=== PATIENT | male | born 1965 | race Caucasian/White ===

== ENCOUNTER 2025-02-18 19:27 | Inpatient (IN) | payer OTHER ==
--- NOTE | 2025-02-18 20:23 | ED ---
General Adult HPI - General Source: patient, RN notes reviewed Mode of arrival: ambulatory Limitations: no limitations <Lewis Slade - Last Filed: 02/18/25 20:21> - General Source: patient, RN notes reviewed, old records reviewed <Wilfrido Leal - Last Filed: 02/19/25 06:31> - General Stated complaint: SOB Time Seen by Provider: 02/18/25 19:44 - History of Present Illness Initial comments: Quick note: This is a 59-year-old male with history including COPD and EtOH abuse coming from [place] for chest congestion and shortness of breath x 3 days. Patient states he has had similar symptoms intermittently for the past 5 years. States he was intubated last year due to influenza exacerbation. Patient also endorses some dyspnea with exertion. Endorses use of Symbicort and Atrovent, stating albuterol given at [facility] provided minimal relief. Denies use of home O2, stating his pulse ox today was 83% RA. Denies fever, chills, hemoptysis, chest pain, abdominal pain, N/V/D, urinary symptoms. (Lewis Slade) Patient is a 59-year-old male with past medical history remarkable for alcohol abuse. Last drink alcohol 1 week ago. Presents from [place] over concern for shortness of breath. Does have a history of tobacco use and COPD. Rarely smokes now. Denies any chest pain. Denies any abdominal pain with nausea, vo miting. Initially seen in triage as a quick note and I evaluated the patient when he was placed in a room. Endorses shortness of breath with exertion. Symptoms have been ongoing for a few days. Presents for further evaluation at this time. Typically not on oxygen. (Wilfrido Leal) - Related Data Allergies Allergy/AdvReac Type Severity Reaction Status Date / Time No Known Allergies Allergy Verified 02/18/25 20:30 Review of Systems ROS Other: All systems not noted in ROS Statement are negative. <Lewis Slade - Last Filed: 02/18/25 20:21> ROS Other: All systems not noted in ROS Statement are negative. <Wilfrido Leal - Last Filed: 02/19/25 06:31> ROS Statement: Those systems with pertinent positive or pertinent negative responses have been documented in the HPI. Review of Systems: CONST: Denies fever EYES: Denies blurry vision ENT: Denies nasal congestion C/V: Denies Chest pain RESP: Endorses dyspnea GI: Denies abdominal pain : Denies dysuria SKIN: Denies rash. MSK: Denies joint pain. NEURO: Denies headache (Wilfrido Leal) General Exam <Lewis Slade - Last Filed: 02/18/25 20:21> <Wilfrido Leal - Last Filed: 02/19/25 06:31> - General Exam Comments Initial Comments: Visual Physical Exam Vital signs reviewed General: Well-appearing, nontoxic, no acute distress. Head: Normocephalic, atraumatic Eyes: PERRLA, EOMI ENT: Airway patent Chest: Nonlabored breathing Skin: No visual rash, normal skin tone Neuro: Alert and oriented 3 Musculoskeletal: No gross abnormalities (Lewis Slade) General: Febrile. Increased work of breathing. HEAD: Normal with no signs of head trauma. EYES: PERRLA, EOMI, conjunctiva normal, no discharge. Pupils are 3 mm and equal bilaterally. ENT: Hearing grossly intact, normal oropharynx. RESPIRATORY: Coarse breath sounds bilaterally with wheezing. Hypoxic on room air. Normoxic on 4 to 5 L nasal cannula. C/V: Tachycardic with regular rhythm. S1 and S2 auscultated, no edema, peripheral pulses 2+ and intact throughout ABD: Abd is soft, nontender, nondistended EXT: Normal range of motion, no obvious deformity SKIN: No rashes or lesions observed on exposed skin. NEURO: Alert and oriented x 4. (Wilfrido Leal) Course Vital Signs 02/18/25 02/18/25 02/18/25 20:26 23:29 23:32 Temperature 100.3 F H 99.8 F H Pulse Rate 114 H 104 H Pulse Rate [ Pulse Oximetery ] Respiratory 22 26 H 26 H Rate Blood Pressure 173/94 156/88 Blood Pressure [Left Arm] O2 Sat by Pulse 94 L 92 L Oximetry 02/19/25 02/19/25 02/19/25 02:10 02:22 02:34 Temperature 99.5 F Pulse Rate 108 H 110 H 89 Pulse Rate [ Pulse Oximetery ] Respiratory 22 Rate Blood Pressure 140/79 Blood Pressure [Left Arm] O2 Sat by Pulse 93 L Oximetry 02/19/25 02/19/25 02/19/25 04:38 06:14 06:17 Temperature 99.2 F 97.6 F Pulse Rate 88 Pulse Rate [ 93 Pulse Oximetery ] Respiratory 18 18 22 Rate Blood Pressure 139/84 Blood Pressure 125/78 [Left Arm] O2 Sat by Pulse 94 L 92 L Oximetry Medical Decision Making <Lewis Slade - Last Filed: 02/18/25 20:21> - Lab Data Result diagrams: 02/19/25 01:00 02/19/25 01:00 - EKG Data -: EKG Interpreted by Me <Wilfrido Leal - Last Filed: 02/19/25 06:31> - Medical Decision Making I completed the quick note portion of this chart signed JA Oneal (Lewis Slade) Was pt. sent in by a medical professional or institution ([facility], FLOOR FINISHER, urgent care, hospital, or assisted...) When possible be specific @ -No Did you speak to anyone other than the patient for history (EMS, parent, family, police, friend...)? What history was obtained from this source @ -No Did you review nursing and triage notes (agree or disagree)? Why? @ -I reviewed and agree with nursing and triage notes Were old charts reviewed (outside hosp., previous admission, EMS record, old EKG, old radiological studies, urgent care reports/EKG's, assisted records)? Report findings @ -No old charts were reviewed Differential Diagnosis (chest pain, altered mental status, abdominal pain women, abdominal pain men, vaginal bleeding, weakness, fever, dyspnea, syncope, headache, dizziness, GI bleed, back pain, seizure, CVA, palpatations, mental health, musculoskeletal)? @ -Differential Dyspnea: Coronary syndrome, arrhythmia, tamponade, asthma, COPD, pulmonary embolism, pneumonia, pneumothorax, pulmonary effusion, anaphylaxis, diabetic ketoacidosis, flailed chest, pulmonary contusion, diaphragmatic rupture, anemia, neuromuscular, this is not meant to be an all-inclusive list. EKG interpreted by me (3pts min.). @ -As above X-rays interpreted by me (1pt min.). @ -Chest x-ray shows bilateral pneumonia CT interpreted by me (1pt min.). @ -None done U/S interpreted by me (1pt. min.). @ -None done What testing was considered but not performed or refused? (CT, X-rays, U/S, labs)? Why? @ -None What meds were considered but not given or refused? Why? @ -None Did you discuss the management of the patient with other professionals (professionals i.e. , PA, FLOOR FINISHER, lab, RT, psych nurse, social insurance specialist, diabetes clinical manager, teacher, duty officer, family caseworker)? Give summary @ -Discussed with admitting provider, ANDREE Olimpia SULLIVAN accepted the admission. Was smoking cessation discussed for >3mins.? @ -No Was critical care preformed (if so, how long)? @ -Yes, 35 minutes Were there social determinants of health that impacted care today? How? (Homelessness, low income, unemployed, alcoholism, drug addiction, transportation, low edu. Level, literacy, decrease access to med. care, snf, rehab)? @ -No Was there de-escalation of care discussed even if they declined (Discuss DNR or withdrawal of care, Hospice)? DNR status @ -No What co-morbidities impacted this encounter? (DM, HTN, Smoking, COPD, CAD, Cancer, CVA, ARF, Chemo, Hep., AIDS, mental health diagnosis, sleep apnea, morbid obesity)? @ -COPD Was patient admitted / discharged? Hospital course, mention meds given and route, prescriptions, significant lab abnormalities, going to OR and other pert inent info. @ -Patient presents emergency department with hypoxic respiratory failure, increased shortness of breath with productive cough. Seems to be infectious with COPD exacerbation. Originally seen as a quick note and I evaluated the patient when he is placed in room. Patient did meet sepsis criteria at this time with multiple SIRS criteria. Patient met sepsis criteria at 0000. Culture ordered. Patient given 2 L fluid bolus of lactated Ringer's as well as IV steroids, breathing treatment, maintenance IV fluids. Patient will be admitted likely after workup. EKG shows no signs of acute ischemia. Labs remarkable for leukocytosis of 13. Lactic acid within acceptable limits. Viral swabs unremarkable. Patient's chest x-ray shows bilateral pneumonia. On reevaluation, patient is resting more comfortably at this time. Increased work of breathing is decreased. Fever is improved. He will be admitted at this time for hypoxic respiratory failure likely from septic pneumonia. Also COPD exacerbation. He was in agreement this plan. Pulmonology consulted. I spoke with the admitting provider, ANDREE SULLIVAN who accepted the admission. Undiagnosed new problem with uncertain prognosis? @ -No Drug Therapy requiring intensive monitoring for toxicity (Heparin, Nitro, Insulin, Cardizem)? @ -No Were any procedures done? @ -No Diagnosis/symptom? @ -Hypoxic respiratory failure secondary to COPD and septic pneumonia Acute, or Chronic, or Acute on Chronic? @ -Acute Uncomplicated (without systemic symptoms) or Complicated (systemic symptoms)? @ -Complicated Side effects of treatment? @ -No Exacerbation, Progression, or Severe Exacerbation? @ -No Poses a threat to life or bodily function? How? (Chest pain, USA, MD, pneumonia, PE, COPD, DKA, ARF, appy, cholecystitis, CVA, Diverticulitis, Homicidal, Suicidal, threat to staff... and all critical care pts) @ -Yes (Wilfrido Leal) - Lab Data Lab Results 02/18/25 02/19/25 02/19/25 Range/Units 23:29 01:00 01:00 WBC 13.03 H (4.50-10.00) 10*3/uL RBC 3.96 L (4.40-5.60) 10*6/uL Hgb 12.0 L (13.0-17.0) g/dL Hct 36.4 L (39.6-50.0) % MCV 91.9 (80.0-97.0) fL MCH 30.3 (27.0-32.0) pg MCHC 33.0 (32.0-37.0) g/dL Plt Count 383 (140-440) 10*3/uL MPV 8.9 L (9.5-12.2) fL Immature Gran % (Auto) 0.6 % Neutrophils % 85.0 % Lymphocytes % 7.4 % Monocytes % 6.1 % Eosinophils % 0.4 % Basophils % 0.5 % Immature Gran # 0.08 H (0.00-0.04) 10*3/uL Neutrophils # 11.07 H (1.80-7.70) 10*3/uL Lymphocytes # 0.96 (0.90-5.00) 10*3/uL Monocytes # 0.80 (0.20-1.00) 10*3/uL Eosinophils # 0.05 (0.04-0.35) 10*3/uL Basophils # 0.07 (0.00-0.10) 10*3/uL Sodium 133 L (137-145) mmol/L Potassium 4.4 (3.5-5.1) mmol/L Chloride 99 (98-107) mmol/L Carbon Dioxide 23 (22-30) mmol/L Anion Gap 11 mmol/L BUN 24 H (9-20) mg/dL Creatinine 0.66 (0.66-1.25) mg/dL Est GFR (CKD-EPI)AfAm >90 (>60 ml/min/1.73 sqM) Est GFR (CKD-EPI)NonAf >90 (>60 ml/min/1.73 sqM) Glucose 116 H (74-99) mg/dL Plasma Lactic Acid Kye (0.7-2.0) mmol/L Calcium 8.7 (8.4-10.2) mg/dL Total Bilirubin 0.5 (0.2-1.3) mg/dL AST 24 (17-59) U/L ALT 35 (4-49) U/L Alkaline Phosphatase 76 (38-126) U/L Total Protein 6.6 (6.3-8.2) g/dL Albumin 3.9 (3.5-5.0) g/dL Influenza Type A (PCR) Not Detected (Not Detectd) Influenza Type B (PCR) Not Detected (Not Detectd) RSV (PCR) Not Detected (Not Detectd) SARS-CoV-2 (PCR) Not Detected (Not Detectd) 02/19/25 Range/Units 01:00 WBC (4.50-10.00) 10*3/uL RBC (4.40-5.60) 10*6/uL Hgb (13.0-17.0) g/dL Hct (39.6-50.0) % MCV (80.0-97.0) fL MCH (27.0-32.0) pg MCHC (32.0-37.0) g/dL Plt Count (140-440) 10*3/uL MPV (9.5-12.2) fL Immature Gran % (Auto) % Neutrophils % % Lymphocytes % % Monocytes % % Eosinophils % % Basophils % % Immature Gran # (0.00-0.04) 10*3/uL Neutrophils # (1.80-7.70) 10*3/uL Lymphocytes # (0.90-5.00) 10*3/uL Monocytes # (0.20-1.00) 10*3/uL Eosinophils # (0.04-0.35) 10*3/uL Basophils # (0.00-0.10) 10*3/uL Sodium (137-145) mmol/L Potassium (3.5-5.1) mmol/L Chloride (98-107) mmol/L Carbon Dioxide (22-30) mmol/L Anion Gap mmol/L BUN (9-20) mg/dL Creatinine (0.66-1.25) mg/dL Est GFR (CKD-EPI)AfAm (>60 ml/min/1.73 sqM) Est GFR (CKD-EPI)NonAf (>60 ml/min/1.73 sqM) Glucose (74-99) mg/dL Plasma Lactic Acid Kye 0.9 (0.7-2.0) mmol/L Calcium (8.4-10.2) mg/dL Total Bilirubin (0.2-1.3) mg/dL AST (17-59) U/L ALT (4-49) U/L Alkaline Phosphatase (38-126) U/L Total Protein (6.3-8.2) g/dL Albumin (3.5-5.0) g/dL Influenza Type A (PCR) (Not Detectd) Influenza Type B (PCR) (Not Detectd) RSV (PCR) (Not Detectd) SARS-CoV-2 (PCR) (Not Detectd) - EKG Data EKG Comments: 12-lead Electrocardiogram Interpretation Note EKG was reviewed and interpreted by myself. 12-lead ECG performed at 0201 is interpreted by me as revealing sinus tachycardia at a rate of 110 beats per minute. [place] is normal. MN interval is 164 ms, QRS duration is 91 ms, QTc is 395 ms.. There were no ST or T wave abnormalities to suggest myocardial ischemia or injury. R wave progression across the precordium was satisfactory. By my interpretation this EKG is non-diagnostic for acute ischemia. (Wilfrido Leal) Critical Care Time Critical Care Time: Yes Total Critical Care Time: 35 <Wilfrido Leal - Last Filed: 02/19/25 06:31> Disposition <Lewis Slade - Last Filed: 02/18/25 20:21> Time of Disposition: 02:16 <Wilfrido Leal - Last Filed: 02/19/25 06:31> Clinical Impression: Acute hypoxic respiratory failure, COPD (chronic obstructive pulmonary disease), Sepsis, Pneumonia Disposition: ADMITTED IP TO THIS HOSP Condition: Serious
--- NOTE | 2025-02-18 23:06 | XR ---
EXAMINATION TYPE: XR chest 2V DATE OF EXAM: 02/18/2025 9:48 PM CLINICAL INDICATION:Male, 59 years old with history of Cough, dyspnea; [facility] COMPARISON: None TECHNIQUE: XR chest 2V Frontal view of the chest. FINDINGS: Bilateral hazy interstitial and patchy airspace opacities are noted. The lungs are slightly hyperinfl ated. The cardiac silhouette is unremarkable. No pneumothorax. There is a round density seen in the a nterior lower hemithorax best seen on sagittal views. No acute osseous abnormality. IMPRESSION: Bilateral hazy interstitial and patchy airspace disease is concerning for acute infectious/inflammato ry process. Rounded density in the lower anterior hemithorax may relate to a hiatal hernia. Correlate with any known history otherwise CT chest is recommended to delineate this finding. [facility], , 02/18/2025 11:03 PM
[2025-02-19] MEDS ORDERED: VANCOMYCIN IV PER PHARMACY 1 EACH MISC MISCELLANE PRN (00:03)
[2025-02-19 00:18] LABS: RSV Not Detected (Not Detectd)
[2025-02-19] MEDS: methylPREDNISolone SOD SUCCI 125 MG/2 ML VIAL IV STA (00:38)
[2025-02-19] MEDS: CEFEPIME 2 GM in SODIUM CHLORIDE 0.9% 100 ML IVPB STA (00:40)
[2025-02-19] MEDS: LACTATED RINGERS 1,000 ML IV SCH ×2 (00:44→01:45)
[2025-02-19 01:17] LABS: Basophils # (A) 0.07 10*3/uL (0.00-0.10); Basophils % (A) 0.5 %; Eosinophils # (A) 0.05 10*3/uL (0.04-0.35); Eosinophils % (A) 0.4 %; HCT 36.4 % (39.6-50.0); HGB 12.0 g/dL (13.0-17.0); Lymphocytes # (A) 0.96 10*3/uL (0.90-5.00); Lymphocytes % (A) 7.4 %; MCH 30.3 pg (27.0-32.0); MCHC 33.0 g/dL (32.0-37.0); MCV 91.9 fL (80.0-97.0); Monocytes # (A) 0.80 10*3/uL (0.20-1.00); Monocytes % (A) 6.1 %; Neutrophils # (A) 11.07 10*3/uL (1.80-7.70); Neutrophils % (A) 85.0 %; Platelet Count 383 10*3/uL (140-440); RBC 3.96 10*6/uL (4.40-5.60); RDW 13.5 % (11.5-14.5); WBC 13.03 10*3/uL (4.50-10.00)
[2025-02-19] MEDS: VANCOMYCIN 1,750 MG in SODIUM CHLORIDE 0.9% 500 ML 500 ML IVPB ONE (01:40)
[2025-02-19] MEDS: ACETAMINOPHEN TAB 500 MG TAB PO STA (01:51)
[2025-02-19 02:03] LABS: ALT 35 U/L (4-49); AST 24 U/L (17-59); African American GFR (CKD) >90 (>60 ml/min/1.73 sqM); Albumin 3.9 g/dL (3.5-5.0); Alkaline Phosphatase 76 U/L (38-126); Anion Gap 11 mmol/L; Blood Urea Nitrogen 24 mg/dL (9-20); Calcium 8.7 mg/dL (8.4-10.2); Carbon Dioxide 23 mmol/L (22-30); Chloride 99 mmol/L (98-107); Glucose 116 mg/dL (74-99); Non-African American GFR(CKD) >90 (>60 ml/min/1.73 sqM); Potassium 4.4 mmol/L (3.5-5.1); Sodium 133 mmol/L (137-145); Total Protein 6.6 g/dL (6.3-8.2)
[2025-02-19] MEDS: IPRATROPIUM-ALBUTEROL 3 ML NEB INHALATION STA (02:07)
[2025-02-19] MEDS ORDERED: ONDANSETRON 4 MG/2 ML VIAL IVP PRN (02:15)
[2025-02-19] MEDS ORDERED: ACETAMINOPHEN TAB 325 MG TAB PO PRN (02:15)
[2025-02-19] MEDS ORDERED: NALOXONE 0.4 MG/ML 1 ML VIAL IV PRN (02:15)
[2025-02-19] MEDS ORDERED: IPRATROPIUM-ALBUTEROL 3 ML NEB INHALATION PRN (02:17)
--- NOTE | 2025-02-19 07:35 | P.CNPUL ---
History of Present Illness Consult date: 02/19/25 Requesting physician: Wilfrido Leal Reason for consult: COPD, pneumonia Chief complaint: Sent in from [place], shortness of breath and fevers History of present illness: Patient is a 59-year-old male with past medical history significant for alcohol abuse sent in from [place] with increased work of breathing x 3 days and congested cough along with fevers. He is from the [facility]. He does have history of COPD and previously previous intubation due to influenza infection. He was hypoxic on arrival and placed on supplemental oxygen. He was tachycardic and febrile and met sepsis criteria. He was bolused with 2 L of lactated Ringer's. Chest x-ray showing bilateral hazy interstitial and patchy airspace disease concerning for pneumonia. Rounded density in the lower anterior hemithorax may be related to hiatal hernia. CBC remarkable for leukocytosis with a white count of 13, hemoglobin 12, platelets 383. Electrolytes WDL, creatinine 0.66, glucose 116. Lactic 0.9. Viral 4 Plex negative for influenza A/B, RSV, COVID. Patient previously started on antibiotics in the form of cefepime and vancomycin. Also, started on DuoNebs and loaded with IV Solu- Medrol. Patient currently being evaluated on the general medical floor. He is resting comfortably on 5 L/min nasal cannula. Does not appear to be distressed. Patient states he was clean from alcohol for proximately 9 months and then approximately 2 weeks ago started binge drinking 1/5/day. Was at [place] to detox. His last drink was on of last week. Denies any current drug abuse, previously cocaine userr but quit 1 year ago. Denies any chest pain, heart palpitations, lightheadedness or syncopal events, or lower extremity edema. While at the rehab facility he developed increased work of breathing, congested cough, and chills. He was febrile on arrival at our facility. He does have COPD. Smokes approximately 1/2 pack/day. He is on a combination of inhalers including Symbicort, Atrovent, and as needed albuterol. Normal saline infusing at 130 mL/h. Vital signs are stable. Review of Systems Constitutional: Reports fatigue, Reports fever, Denies chills, Denies poor appetite, Denies weakness, Denies weight gain, Denies weight loss Ears, nose, mouth and throat: Denies dysphagia, Denies headache, Denies nasal congestion, Denies nasal discharge, Denies post-nasal drip, Denies sinus pain, Denies sinus pressure, Denies sore throat Cardiovascular: Denies chest pain, Denies leg edema, Denies lightheadedness, Denies orthopnea, Denies palpitations, Denies paroxysmal nocturnal dyspnea, Denies syncope Gastrointestinal: Denies abdominal pain, Denies constipation, Denies diarrhea, Denies loss of appetite, Denies nausea, Denies vomiting Genitourinary: Denies dysuria Musculoskeletal: Denies limitation of motion Integumentary: Denies rash Neurological: Reports seizures (Admits to previous seizures during alcohol withdrawal), Denies head injury, Denies headaches, Denies syncope Psychiatric: Denies anxiety, Denies depression Past Medical History Past Medical History: COPD History of Any Multi-Drug Resistant Organisms: None Reported Past Surgical History: No Surgical Hx Reported Past Anesthesia/Blood Transfusion Reactions: No Reported Reaction Past Psychological History: No Psychological Hx Reported Smoking Status: Current some day smoker Past Alcohol Use History: Abuse Additional Past Alcohol Use History / Comment(s): Hx Alcohol abuse. Last drink 02/11/25. Patient was at [place] prior to admission Past Drug Use History: None Reported Medications and Allergies Allergies Allergy/AdvReac Type Severity Reaction Status Date / Time No Known Allergies Allergy Verified 02/19/25 11:04 Physical Exam Vitals: Vital Signs Temp Pulse Pulse Resp BP BP Pulse Ox 02/19/25 06:17 22 02/19/25 06:14 97.6 F 93 18 125/78 92 L 02/19/25 04:38 99.2 F 88 18 139/84 94 L 02/19/25 02:34 99.5 F 89 22 140/79 93 L 02/19/25 02:22 110 H 02/19/25 02:10 108 H 02/18/25 23:32 26 H 02/18/25 23:29 99.8 F H 104 H 26 H 156/88 92 L 02/18/25 20:26 100.3 F H 114 H 22 173/94 94 L Intake and Output 02/18/25 02/19/25 02/19/25 22:59 06:59 14:59 Other: Weight 118.614 kg 118.614 kg GENERAL EXAM: Alert, 59-year-old male, morbidly obese, on 5 L/min nasal cannula, comfortable in no apparent distress. HEAD: Normocephalic and atraumatic EYES: Normal reaction of pupils, equal size. NOSE: Clear with pink turbinates. THROAT: No erythema or exudates. Crowded oropharyngeal airway, Mallampati score 4 NECK: No masses, no JVD. CHEST: No chest wall deformity. LUNGS: Equal air entry with minimal bibasilar crackles. On 5 L/min nasal cannula. No conversational dyspnea or accessory muscle use.. CVS: S1 and S2 normal with no audible murmur, regular rhythm. No extra heart sounds ABDOMEN: No hepatosplenomegaly, active bowel sounds, no guarding or rigidity. SPINE: No scoliosis or deformity SKIN: No rashes CENTRAL NERVOUS SYSTEM: No focal deficits, tone is normal in all 4 extremities. EXTREMITIES: There is no peripheral edema, clubbing, or cyanosis. Peripheral pulses are intact. Results - Laboratory Findings CBC and BMP: 02/19/25 01:00 02/19/25 01:00 Abnormal lab findings: Abnormal Labs 02/19/25 02/19/25 01:00 01:00 WBC 13.03 H RBC 3.96 L Hgb 12.0 L Hct 36.4 L MPV 8.9 L Immature Gran # 0.08 H Neutrophils # 11.07 H Sodium 133 L BUN 24 H Glucose 116 H - Diagnostic Findings Chest x-ray: image reviewed Assessment and Plan Assessment: Bilateral community-acquired pneumonia Acute COPD exacerbation, secondary to above Acute hypoxemic respiratory failure, currently on 5 L/min nasal cannula, chest x-ray remarkable for bilateral hazy interstitial and patchy airspace disease concerning for pneumonia. Rounded density in the lower anterior hemithorax may be related to hiatal hernia. Alcohol abuse, last drink approximately 1 week ago, potential referral 1/5/day History of alcohol withdrawal seizures History of cocaine use Current ongoing tobacco dependence, 1/2 pack/day smoker History of previous mechanical ventilator dependent respiratory failure secondary to influenza infection, hospitalized at [facility] Morbid obesity, with a BMI of 41 kg/m Plan: Continue supplemental oxygen, currently on 5 L/min nasal cannula, wean as tolerated Patient's medications, labs, chest x-ray reviewed Hazy bilateral infiltrates, alcoholic with recent binge drinking. Continue antibiotic coverage in the form of cefepime Obtain sputum sample if possible Blood cultures were sent Viral 4 Plex negative for influenza A/B RSV, COVID. Monitor for alcohol withdrawal, however, patient's last drink was over 1 week ago We will continue to follow, additional recommendations forthcoming. I have personally seen and examined the patient, performed the documentation and the assessment and plan as written. Number of minutes spent on the visit:20 This is a joint evaluation that was done along with the nurse practitioner. This evaluation was done and 35 minutes. The patient is morbidly obese alcoholic male patient with previous history of polysubstance abuse. He was undergoing alcohol rehabilitation at [place] with the patient developed progressive increased dyspnea cough chest tightness wheezing and shortness of breath. He is currently hospitalized for bilateral pneumonia. The viral screen is negative. The chest x-ray revealed hazy bilateral pulmonary infiltrates in the lung base bilaterally and the patient also has a rounded density in the lower anterior hemithorax could be related to underlying hiatal hernia. The patient is currently on 4 L of oxygen by nasal cannula with pulse ox of 94%. The patient is currently on IV cefepime and vancomycin. No signs of any delirium tremens. He does have obvious features of obstructive sleep apnea that can be worked up at a later stage. He smokes half pack of cigarettes a day. He also has COPD. He is currently on Symbicort and DuoNeb the regiment [id number]. IV fluids lactated Ringer at rate of 130 cc an hour. He is also on IV Solu-Medrol. Will continue to follow. Time with Patient: Greater than 30
[2025-02-19] MEDS: IPRATROPIUM-ALBUTEROL 3 ML NEB INHALATION SCH (08:57)
[2025-02-19] MEDS: SYMBICORT 160-4.5 MCG INHALER INHALATION SCH (08:59)
[2025-02-19] MEDS: methylPREDNISolone SOD SUCCI 40 MG/ML 1 ML VIAL IV SCH (10:01)
[2025-02-19] MEDS: ENOXAPARIN 40 MG/0.4 ML SYRINGE SQ SCH (10:01)
[2025-02-19] MEDS: CEFEPIME 2 GM in SODIUM CHLORIDE 0.9% 100 ML IVPB SCH (10:01)
[2025-02-19] MEDS: VANCOMYCIN 1,750 MG in SODIUM CHLORIDE 0.9% 500 ML 500 ML IVPB SCH (14:58)
[2025-02-19 20:31] LABS: Glucose,Whole Blood 157 mg/dL (70-110)
[2025-02-19] MEDS: ATORVASTATIN 20 MG TAB PO SCH (20:59)
[2025-02-19] MEDS: LABETALOL 100 MG TAB PO SCH (20:59)
[2025-02-19] MEDS: INSULIN LISPRO (HumaLOG) 100 UNIT/ML 10 mL VL SQ SCH (21:00)
[2025-02-19] MEDS: NICOTINE 14MG/24HR PATCH TRANSDERM SCH (22:43)
--- NOTE | 2025-02-20 00:42 | P.HPIM ---
History of Present Illness This is a pleasant 59 years old male with past medical history with chronic obstructive pulmonary disease. Presents because of worsening dyspnea over 2 days associated with cough and yellow phlegm with no chest pain No specific GI/ symptoms has little headache but no weakness numbness or dizziness Also was complaining from exertional dyspnea. He says he quit smoking but relapsed few months ago and he started smoking again about less than 10 cigarettes/day, he was counseled to quit he agrees but he does not want nicotine patch Patient was at [facility] because he drinks 2/5 day, he has the pression but no suicidal or homicidal ideation. He denies hallucination or delusions. He looks calm and relaxed in bed He had low-grade temperature 100.3, heart rate 114 respiratory 22 blood pressure 173/91 Chest x-ray showing bilateral interstitial and patchy airspace disease EKG showing sinus tachycardia [address]-T changes Review of Systems Review of systems CONSTITUTIONAL: No fever, no malaise, no fatigue. HEENT: No recent visual problems or hearing problems. Denied any sore throat. CARDIOVASCULAR: No orthopnea, PND, no palpitations, no syncope. PULMONARY: No chest wall tenderness, no hemoptysis. GASTROINTESTINAL: No diarrhea, no nausea, no vomiting, no abdominal pain. Normoactive bowel sounds. NEUROLOGICAL: No headaches, no weakness, no numbness. HEMATOLOGICAL: Denies any bleeding or petechiae. GENITOURINARY: Denies any burning micturition, frequency, or urgency. MUSCULOSKELETAL/RHEUMATOLOGICAL: Denies any joint pain, swelling, or any muscle pain. ENDOCRINE: Denies any polyuria or polydipsia. Past Medical History Past Medical History: COPD History of Any Multi-Drug Resistant Organisms: None Reported Past Surgical History: No Surgical Hx Reported Past Anesthesia/Blood Transfusion Reactions: No Reported Reaction Past Psychological History: No Psychological Hx Reported Smoking Status: Current some day smoker Past Alcohol Use History: Abuse Additional Past Alcohol Use History / Comment(s): Hx Alcohol abuse. Last drink 02/11/25. Patient was at [facility] prior to admission Past Drug Use History: None Reported Medications and Allergies Home Medications Medication Instructions Recorded Confirmed Type Albuterol Sulfate [Ventolin HFA] 1 puff INHALATION RT-Q4H PRN 02/19/25 02/19/25 History Atorvastatin [Lipitor] 20 mg PO HS 02/19/25 02/19/25 History Budesonide/Formoterol Fumarate 1 puff INHALATION RT-BID 02/19/25 02/19/25 History [Symbicort 160-4.5 Mcg Inhaler] Ibuprofen [Motrin Ib] 600 mg PO Q6H PRN 02/19/25 02/19/25 History Ipratropium [place] [Atrovent Hfa] 2 puff INHALATION RT-Q6H PRN 02/19/25 02/19/25 History Labetalol HCl 300 mg PO Q12H 02/19/25 02/19/25 History PARoxetine HCL 40 mg PO DAILY 02/19/25 02/19/25 History Semaglutide [Ozempic] 0.25 mg SQ TH 02/19/25 02/19/25 History amLODIPine [Norvasc] 5 mg PO DAILY 02/19/25 02/19/25 History guaiFENesin SYRUP 100MG/5ML 200 mg PO Q4H PRN 02/19/25 02/19/25 History [Robitussin] metFORMIN HCL [Glucophage] 500 mg PO BID-W/MEALS 02/19/25 02/19/25 History traZODone HCL [Desyrel] 100 mg PO HS PRN 02/19/25 02/19/25 History Allergies Allergy/AdvReac Type Severity Reaction Status Date / Time No Known Allergies Allergy Verified 02/19/25 11:04 Physical Exam Vitals: Vital Signs Temp Pulse Pulse Resp BP BP Pulse Ox 02/19/25 13:32 98.2 F 108 H 17 143/87 94 L 02/19/25 12:07 96 02/19/25 11:56 96 02/19/25 10:00 22 02/19/25 09:14 100 02/19/25 09:00 96 95 02/19/25 07:16 97.5 F L 85 16 127/79 92 L 02/19/25 06:17 22 02/19/25 06:14 97.6 F 93 18 125/78 92 L 02/19/25 04:38 99.2 F 88 18 139/84 94 L 02/19/25 02:34 99.5 F 89 22 140/79 93 L 02/19/25 02:22 110 H 02/19/25 02:10 108 H 02/18/25 23:32 26 H 02/18/25 23:29 99.8 F H 104 H 26 H 156/88 92 L 02/18/25 20:26 100.3 F H 114 H 22 173/94 94 L Intake and Output 02/19/25 02/19/25 02/19/25 06:59 14:59 22:59 Output Total 300 Balance -300 Output: Urine 300 Other: Weight 118.614 kg -GENERAL: The patient is alert and oriented x3, not in any acute distress. Well developed, well nourished. Obese HEENT: Pupils are round and equally reacting to light. EOMI. No scleral icterus. No conjunctival pallor. Normocephalic, atraumatic. No pharyngeal erythema. No thyromegaly. CARDIOVASCULAR: S1 and S2 present. No murmurs, rubs, or gallops. -PULMONARY: Chest is clear to auscultation, bilateral expiratory wheezing , no crackles. ABDOMEN: Soft, nontender, nondistended, normoactive bowel sounds. No palpable organomegaly. MUSCULOSKELETAL: No joint swelling or deformity. EXTREMITIES: No cyanosis, clubbing, or pedal edema. NEUROLOGICAL: Gross neurological examination did not reveal any focal deficits. SKIN: No rashes. no petechiae. Results CBC & Chem 7: 02/19/25 01:00 02/19/25 01:00 Labs: Abnormal Lab Results - Last 24 Hours (Table) 02/19/25 02/19/25 Range/Units 01:00 01:00 WBC 13.03 H (4.50-10.00) 10*3/uL RBC 3.96 L (4.40-5.60) 10*6/uL Hgb 12.0 L (13.0-17.0) g/dL Hct 36.4 L (39.6-50.0) % MPV 8.9 L (9.5-12.2) fL Immature Gran # 0.08 H (0.00-0.04) 10*3/uL Neutrophils # 11.07 H (1.80-7.70) 10*3/uL Sodium 133 L (137-145) mmol/L BUN 24 H (9-20) mg/dL Glucose 116 H (74-99) mg/dL Thrombosis Risk Factor Assmnt - Choose All That Apply Any of the Below Risk Factors Present?: Yes Each Factor Represents 1 point: Abnormal pulmonary function (COPD), Age 41-60 years, Obesity (BMI >25) Other Risk Factors: No Other congenital or acquired thrombophilia - If yes, enter type in comment: No Thrombosis Risk Factor Assessment Total Risk Factor Score: 3 Thrombosis Risk Factor Assessment Level: Moderate Risk Assessment and Plan Assessment: Acute COPD exacerbation Acute bibasilar pneumonia right more than left Sepsis with fever and leukocytosis Acute hypoxic respiratory failure Nicotine dependence Alcohol use disorder at risk of alcohol withdrawal Depression without suicidal or homicidal ideation Obesity with BMI of 41 Plan: Continue with IV Solu-Medrol Continue cefepime and IV vancomycin Continue with IV fluid currently Ringer lactate at 130 Continue with Lovenox GI prophylaxis: Pepcid DVT prophylaxis: Pepcid Further recommendation based on the clinical course Patient was counseled to quit smoking drinking Prognosis is guarded
[2025-02-20 06:14] LABS: Glucose,Whole Blood 147 mg/dL (70-110)
[2025-02-20] MEDS: IPRATROPIUM-ALBUTEROL 3 ML NEB INHALATION SCH (07:48)
[2025-02-20] MEDS: PARoxetine 20 MG TAB PO SCH (08:09)
[2025-02-20] MEDS: amLODIPine 5 MG TAB PO SCH (08:10)
[2025-02-20 09:40] LABS: ALT 32 U/L (10-49); AST 17 U/L (14-35); Albumin 3.8 g/dL (3.8-4.9); Albumin/Globulin Ratio 1.52 Ratio (1.60-3.17); Alkaline Phosphatase 74 U/L (41-126); Anion Gap 10.80 mmol/L (4.00-12.00); BUN/Creat Ratio 25.00 Ratio (12.00-20.00); Blood Urea Nitrogen 17.5 mg/dL (9.0-27.0); Calcium 8.2 mg/dL (8.7-10.3); Carbon Dioxide 25.2 mmol/L (21.6-31.8); Chloride 106 mmol/L (96-109); Globulin 2.5 g/dL (1.6-3.3); Glucose 139 mg/dL (70-110); Potassium 4.1 mmol/L (3.5-5.5); Sodium 142 mmol/L (135-145); Total Protein 6.3 g/dL (6.2-8.2)
[2025-02-20 11:19] LABS: Glucose,Whole Blood 162 mg/dL (70-110)
[2025-02-20 13:16] LABS: Basophils # (A) 0.02 X 10*3/uL (0.00-0.10); Basophils % (A) 0.1 %; Eosinophils # (A) 0 X 10*3/uL (0.04-0.35); Eosinophils % (A) 0 %; HCT 37.0 % (39.6-50.0); HGB 11.6 g/dL (13.0-17.0); Immature Grans, Automated 1.10 %; Lymphocytes # (A) 0.78 X 10*3/uL (0.90-5.00); Lymphocytes % (A) 5.6 %; MCH 30.4 pg (27.0-32.0); MCHC 31.4 g/dL (32.0-37.0); MCV 97.1 FL (80.0-97.0); Monocytes # (A) 0.57 X 10*3/uL (0.20-1.00); Monocytes % (A) 4.1 %; NRBC Per 100 WBC 0 X 10*3/uL (0.00-0.01); Neutrophils # (A) 12.53 X 10*3/uL (1.80-7.70); Neutrophils % (A) 89.1 %; Platelet Count 408 X 10*3/uL (140-440); RBC 3.81 X 10*6/uL (4.40-5.60); RDW 13.8 % (11.5-14.5); WBC 14.05 X 10*3/uL (4.50-10.00)
[2025-02-20] MEDS: Acetaminophen-Codeine 300-30mg TAB PO PRN (16:13)
[2025-02-20 17:37] LABS: Glucose,Whole Blood 161 mg/dL (70-110)
[2025-02-20] MEDS: BENZONATATE 100 MG CAP PO SCH (21:27)
[2025-02-20 21:46] LABS: Glucose,Whole Blood 186 mg/dL (70-110)
--- NOTE | 2025-02-20 23:37 | P.PN ---
Subjective Progress Note Date: 02/20/25 Patient is a 59-year-old male with past medical history significant for alcohol abuse sent in from [facility] with increased work of breathing x 3 days and congested cough along with fevers. He is from the [facility]. He does have history of COPD and previously previous intubation due to influenza infection. He was hypoxic on arrival and placed on supplemental oxygen. He was tachycardic and febrile and met sepsis criteria. He was bolused with 2 L of lactated Ringer's. Chest x-ray showing bilateral hazy interstitial and patchy airspace disease concerning for pneumonia. Rounded density in the lower anterior hemithorax may be related to hiatal hernia. CBC remarkable for leukocytosis with a white count of 13, hemoglobin 12, platelets 383. Electrolytes WDL, creatinine 0.66, glucose 116. Lactic 0.9. Viral 4 Plex negative for influenza A/B, RSV, COVID. Patient previously started on antibiotics in the form of cefepime and vancomycin. Also, started on DuoNebs and loaded with IV Solu- Medrol. Patient currently being evaluated on the general medical floor. He is resting comfortably on 5 L/min nasal cannula. Does not appear to be distressed. Patient states he was clean from alcohol for proximately 9 months and then approximately 2 weeks ago started binge drinking 1/5/day. Was at [facility] to detox. His last drink was on of last week. Denies any current drug abuse, previously cocaine userr but quit 1 year ago. Denies any chest pain, heart palpitations, lightheadedness or syncopal events, or lower extremity edema. While at the rehab facility he developed increased work of breathing, congested cough, and chills. He was febrile on arrival at our facility. He does have COPD. Smokes approximately 1/2 pack/day. He is on a combination of inhalers including Symbicort, Atrovent, and as needed albuterol. Normal saline infusing at 130 mL/h. Vital signs are stable. On 02/20/2025, patient is being seen for a follow-up. Remains on broad-spectrum antibiotics regarding bilateral lower lobe pneumonia and the patient remains on a combination of cefepime and vancomycin. Remains on oxygen and the patient is currently on 4 L of O2 nasal cannula. Afebrile. Hemodynamically stable. No signs of any delirium tremens. The blood culture is negative. Sputum culture is still negative. The white cell count is 14 with a hemoglobin 11.6 and a platelet count of 408. Electrolytes are all within normal limits. LFTs are also within normal limits. The viral screen was negative. Lactic acid level was down to 0.9. No other new complaints. No altered mentation. Objective - Vital Signs Vital signs: Vital Signs Temp 97.5 F L 02/20/25 08:00 Pulse 91 02/20/25 08:00 Resp 20 02/20/25 08:00 BP 138/85 02/20/25 08:00 Pulse Ox 94 L 02/20/25 08:00 FiO2 Intake & Output 02/19/25 02/20/25 02/20/25 18:59 06:59 18:59 Intake Total 560 Output Total 1200 Balance -640 Intake: Oral 560 Output: Urine 1200 Other: # Voids 4 7 - Exam GENERAL EXAM: Alert, 59-year-old male, morbidly obese, on 4 L/min nasal cannula, comfortable in no apparent distress. HEAD: Normocephalic and atraumatic EYES: Normal reaction of pupils, equal size. NOSE: Clear with pink turbinates. THROAT: No erythema or exudates. Crowded oropharyngeal airway, Mallampati score 4 NECK: No masses, no JVD. CHEST: No chest wall deformity. LUNGS: Equal air entry with minimal bibasilar crackles. On 5 L/min nasal cannula. No conversational dyspnea or accessory muscle use.. CVS: S1 and S2 normal with no audible murmur, regular rhythm. No extra heart sounds ABDOMEN: No hepatosplenomegaly, active bowel sounds, no guarding or rigidity. SPINE: No scoliosis or deformity SKIN: No rashes CENTRAL NERVOUS SYSTEM: No focal deficits, tone is normal in all 4 extremities. EXTREMITIES: There is no peripheral edema, clubbing, or cyanosis. Peripheral pulses are intact. - Labs CBC & Chem 7: 02/20/25 04:11 02/20/25 04:11 Labs: Abnormal Lab Results - Last 24 Hours (Table) 02/19/25 02/20/25 02/20/25 Range/Units 20:30 04:11 06:14 BUN/Creatinine Ratio 25.00 H (12.00-20.00) Ratio Glucose 139 H (70-110) mg/dL POC Glucose (mg/dL) 157 H 147 H (70-110) mg/dL Calcium 8.2 L (8.7-10.3) mg/dL Total Bilirubin <0.2 L (0.3-1.2) mg/dL Albumin/Globulin Ratio 1.52 L (1.60-3.17) Ratio 02/20/25 Range/Units 11:17 BUN/Creatinine Ratio (12.00-20.00) Ratio Glucose (70-110) mg/dL POC Glucose (mg/dL) 162 H (70-110) mg/dL Calcium (8.7-10.3) mg/dL Total Bilirubin (0.3-1.2) mg/dL Albumin/Globulin Ratio (1.60-3.17) Ratio Microbiology - Last 24 Hours (Table) 02/19/25 09:57 Gram Stain - Preliminary Sputum Assessment and Plan Assessment: Bilateral community-acquired pneumonia, currently on a combination of cefepime and vancomycin. Acute COPD exacerbation, secondary to above, slightly improved compared to yesterday Acute hypoxemic respiratory failure, currently on 4 L/min nasal cannula, chest x-ray remarkable for bilateral hazy interstitial and patchy airspace disease concerning for pneumonia. Rounded density in the lower anterior hemithorax may be related to hiatal hernia. Alcohol abuse, last drink approximately 1 week ago, potential referral 1/5/day History of alcohol withdrawal seizures History of cocaine use Current ongoing tobacco dependence, 1/2 pack/day smoker History of previous mechanical ventilator dependent respiratory failure secondary to influenza infection, hospitalized at [facility] Morbid obesity, with a BMI of 41 kg/m Plan: Continue supplemental oxygen, currently on 4 L/min nasal cannula, wean as tolerated. Continue antibiotic coverage in the form of cefepime and vancomycin Sputum sample culture is pending Blood cultures still pending, Viral 4 Plex negative for influenza A/B RSV, COVID. Monitor for alcohol withdrawal, however, patient's last drink was over 1 week ago, no signs of any delirium tremens Repeat chest x-ray will neck 24 to 48 hours Smoking cessation counseling Continue DuoNeb the regiment [id number] Continue Symbicort IV Solu-Medrol Lactated Ringer at rate of 130 cc an hour We will continue to follow, Time with Patient: Greater than 30
--- NOTE | 2025-02-21 01:00 | P.PN ---
Subjective This is a pleasant 59 years old male with past medical history with chronic obstructive pulmonary disease. Presents because of worsening dyspnea over 2 days associated with cough and yellow phlegm with no chest pain No specific GI/ symptoms has little headache but no weakness numbness or dizziness Also was complaining from exertional dyspnea. He says he quit smoking but relapsed few months ago and he started smoking again about less than 10 cigarettes/day, he was counseled to quit he agrees but he does not want nicotine patch Patient was at [facility] because he drinks 2/5 day, he has the pression but no suicidal or homicidal ideation. He denies hallucination or delusions. He looks calm and relaxed in bed He had low-grade temperature 100.3, heart rate 114 respiratory 22 blood pressure 173/91 Chest x-ray showing bilateral interstitial and patchy airspace disease EKG showing sinus tachycardia [address]-T changes 02/20 Patient still wheezing although he looks somewhat better Still on Ringer lactate at 130 mL/h Still getting cefepime and IV vancomycin and Solu-Medrol lowered to 40 mg 3 times a day Patient complaining from abdominal pain with cough Tylenol 3 is ordered Also he wants something to loosen his secretion and Tessalon was given for him He feels depressed but no suicidal, no alcohol withdrawal symptoms Review of systems CONSTITUTIONAL: No fever, no malaise, no fatigue. GASTROINTESTINAL: No diarrhea, no nausea, no vomiting, Normoactive bowel sounds. NEUROLOGICAL: No headaches, no weakness, no numbness. HEMATOLOGICAL: Denies any bleeding or petechiae. GENITOURINARY: Denies any burning micturition, frequency, or urgency. MUSCULOSKELETAL/RHEUMATOLOGICAL: Denies any joint pain, swelling, or any muscle pain. ENDOCRINE: Denies any polyuria or polydipsia. Active Medications Generic Name Dose Route Start Last Admin Trade Name Freq PRN Reason Stop Dose Admin Acetaminophen 650 mg 02/19/25 02:15 Acetaminophen Tab 325 Mg Tab PO Q6HR PRN Mild Pain or Fever > 100.5 Acetaminophen/Codeine Phosphate 1 each 02/20/25 16:02 02/20/25 21:27 Acetaminophen-Codeine 300-30mg Tab PO 1 each Q6HR PRN Administration Pain Albuterol/Ipratropium 3 ml 02/19/25 02:17 Ipratropium-Albuterol 3 Ml Neb INHALATION RT-Q2H PRN Shortness Of Breath Or Wheezing Albuterol/Ipratropium 3 ml 02/20/25 08:00 02/20/25 21:26 Ipratropium-Albuterol 3 Ml Neb INHALATION 3 ml RT-QID RACHEL Administration Amlodipine Besylate 5 mg 02/20/25 09:00 02/20/25 08:10 Amlodipine 5 Mg Tab PO 5 mg DAILY RACHEL Administration Atorvastatin Calcium 20 mg 02/19/25 21:00 02/20/25 21:27 Atorvastatin 20 Mg Tab PO 20 mg HS RACHEL Administration Benzonatate 200 mg 02/20/25 21:00 02/20/25 21:27 Benzonatate 100 Mg Cap PO 200 mg BID RACHEL Administration Budesonide/Formoterol Fumarate 2 puff 02/19/25 08:00 02/20/25 21:26 Symbicort 160-4.5 Mcg Inhaler INHALATION 2 puff RT-BID RACHEL Administration Enoxaparin Sodium 40 mg 02/19/25 09:00 02/20/25 21:27 Enoxaparin 40 Mg/0.4 Ml Syringe SQ 40 mg BID RACHEL Administration Cefepime HCl 2 gm/ Sodium 100 mls @ 25 mls/hr 02/19/25 09:00 02/20/25 16:14 [place] IVPB 25 mls/hr Q8H RACHEL Administration Protocol Vancomycin HCl 1,750 mg/ 500 mls @ 167 mls/hr 02/19/25 14:00 02/20/25 14:06 Sodium [place] IVPB 167 mls/hr Q12H RACHEL Administration Lactated Ringer's 1,000 mls @ 75 mls/hr 02/21/25 01:00 Lactated Ringers IV .[id number] [facility] Insulin Human Lispro 0 unit 02/19/25 21:00 02/20/25 22:00 Insulin Lispro (Humalog) 100 Unit/Ml 10 Ml Vl SQ 3 unit ACHS RACHEL Administration Protocol Labetalol HCl 300 mg 02/19/25 21:00 02/20/25 21:27 Labetalol 100 Mg Tab PO 300 mg Q12HR RACHEL Administration Methylprednisolone Sodium Succinate 40 mg 02/19/25 09:00 02/20/25 16:14 Methylprednisolone Sod Succi 40 Mg/Ml 1 Ml Vial IV 40 mg Q8H RACHEL Administration Miscellaneous Information 0 each 02/21/25 13:00 Vancomycin Trough Due 1 Each Misc MISCELLANE 02/21/25 13:01 DIRECTED ONE Naloxone HCl 0.2 mg 02/19/25 02:15 Naloxone 0.4 Mg/Ml 1 Ml Vial IV Q2M PRN Opioid Reversal Nicotine 1 patch 02/19/25 22:15 02/20/25 08:10 Nicotine 14mg/24hr Patch TRANSDERM 1 patch DAILY RACHEL Administration Ondansetron HCl 4 mg 02/19/25 02:15 Ondansetron 4 Mg/2 Ml Vial IVP Q8HR PRN Nausea And Vomiting Paroxetine HCl 40 mg 02/20/25 09:00 02/20/25 08:09 Paroxetine 20 Mg Tab PO 40 mg DAILY RACHEL Administration Trazodone HCl 100 mg 02/19/25 19:50 02/19/25 22:43 Trazodone Hcl 100 Mg Tab PO 100 mg HS PRN Administration SLEEP Objective - Vital Signs Vital signs: Vital Signs Temp 97.5 F L 02/20/25 08:00 Pulse 91 02/20/25 08:00 Resp 20 02/20/25 08:00 BP 138/85 02/20/25 08:00 Pulse Ox 94 L 02/20/25 08:00 FiO2 Intake & Output 02/19/25 02/20/25 02/20/25 18:59 06:59 18:59 Intake Total 560 Output Total 1200 Balance -640 Intake: Oral 560 Output: Urine 1200 Other: # Voids 4 7 - Exam GENERAL: The patient is alert and oriented x3, not in any acute distress. Well developed, well nourished. HEENT: Pupils are round and equally reacting to light. EOMI. No scleral icterus. No conjunctival pallor. Normocephalic, atraumatic. No pharyngeal erythema. No thyromegaly. CARDIOVASCULAR: S1 and S2 present. No murmurs, rubs, or gallops. -PULMONARY: Chest is clear to auscultation, n bilateral expiratory wheezing , no crackles. ABDOMEN: Soft, nontender, nondistended, normoactive bowel sounds. No palpable organomegaly. MUSCULOSKELETAL: No joint swelling or deformity. EXTREMITIES: No cyanosis, clubbing, or pedal edema. NEUROLOGICAL: Gross neurological examination did not reveal any focal deficits. SKIN: No rashes. no petechiae. - Labs CBC & Chem 7: 02/20/25 04:11 02/20/25 04:11 Labs: Abnormal Lab Results - Last 24 Hours (Table) 02/19/25 02/20/25 02/20/25 Range/Units 20:30 04:11 06:14 BUN/Creatinine Ratio 25.00 H (12.00-20.00) Ratio Glucose 139 H (70-110) mg/dL POC Glucose (mg/dL) 157 H 147 H (70-110) mg/dL Calcium 8.2 L (8.7-10.3) mg/dL Total Bilirubin <0.2 L (0.3-1.2) mg/dL Albumin/Globulin Ratio 1.52 L (1.60-3.17) Ratio 02/20/25 Range/Units 11:17 BUN/Creatinine Ratio (12.00-20.00) Ratio Glucose (70-110) mg/dL POC Glucose (mg/dL) 162 H (70-110) mg/dL Calcium (8.7-10.3) mg/dL Total Bilirubin (0.3-1.2) mg/dL Albumin/Globulin Ratio (1.60-3.17) Ratio Microbiology - Last 24 Hours (Table) 02/19/25 09:57 Gram Stain - Preliminary Sputum Assessment and Plan Assessment: Acute COPD exacerbation Acute bibasilar pneumonia right more than left suspicious for pneumonia with gram-negative bacilli and MRSA Sepsis with fever and leukocytosis Acute hypoxic respiratory failure Nicotine dependence Alcohol use disorder at risk of alcohol withdrawal Depression without suicidal or homicidal ideation Obesity with BMI of 41 Plan: Continue with IV Solu-Medrol Continue cefepime and IV vancomycin Continue with IV fluid currently Ringer lactate at 130 Continue with Lovenox GI prophylaxis: Pepcid DVT prophylaxis: Pepcid Further recommendation based on the clinical course Patient was counseled to quit smoking drinking Prognosis is guarded
[2025-02-21] MEDS: LACTATED RINGERS 1,000 ML IV SCH (01:12)
[2025-02-21 06:12] LABS: Glucose,Whole Blood 144 mg/dL (70-110)
[2025-02-21 10:09] LABS: Basophils # (A) 0.02 X 10*3/uL (0.00-0.10); Basophils % (A) 0.1 %; Eosinophils # (A) 0 X 10*3/uL (0.04-0.35); Eosinophils % (A) 0 %; HCT 36.5 % (39.6-50.0); HGB 11.5 g/dL (13.0-17.0); Immature Grans, Automated 1.10 %; Lymphocytes # (A) 0.74 X 10*3/uL (0.90-5.00); Lymphocytes % (A) 5.1 %; MCH 30.3 pg (27.0-32.0); MCHC 31.5 g/dL (32.0-37.0); MCV 96.3 FL (80.0-97.0); Monocytes # (A) 0.65 X 10*3/uL (0.20-1.00); Monocytes % (A) 4.5 %; NRBC Per 100 WBC 0 X 10*3/uL (0.00-0.01); Neutrophils # (A) 13.00 X 10*3/uL (1.80-7.70); Neutrophils % (A) 89.2 %; Platelet Count 420 X 10*3/uL (140-440); RBC 3.79 X 10*6/uL (4.40-5.60); RDW 13.8 % (11.5-14.5); WBC 14.57 X 10*3/uL (4.50-10.00)
[2025-02-21 10:16] LABS: Anion Gap 10.70 mmol/L (4.00-12.00); BUN/Creat Ratio 30.00 Ratio (12.00-20.00); Blood Urea Nitrogen 18.0 mg/dL (9.0-27.0); Calcium 7.9 mg/dL (8.7-10.3); Carbon Dioxide 24.3 mmol/L (21.6-31.8); Chloride 106 mmol/L (96-109); Glucose 145 mg/dL (70-110); Potassium 4.0 mmol/L (3.5-5.5); Sodium 141 mmol/L (135-145)
[2025-02-21 11:39] LABS: Glucose,Whole Blood 161 mg/dL (70-110)
[2025-02-21] MEDS: VANCOMYCIN TROUGH DUE 1 EACH MISC MISCELLANE ONE (13:29)
[2025-02-21 16:38] LABS: Glucose,Whole Blood 194 mg/dL (70-110)
[2025-02-21 20:46] LABS: Glucose,Whole Blood 175 mg/dL (70-110)
[2025-02-21] MEDS: VANCOMYCIN 1,750 MG in SODIUM CHLORIDE 0.9% 500 ML 500 ML IVPB SCH (21:34)
--- NOTE | 2025-02-21 21:57 | P.PN ---
Subjective Progress Note Date: 02/21/25 Patient is a 59-year-old male with past medical history significant for alcohol abuse sent in from [place] with increased work of breathing x 3 days and congested cough along with fevers. He is from the [facility]. He does have history of COPD and previously previous intubation due to influenza infection. He was hypoxic on arrival and placed on supplemental oxygen. He was tachycardic and febrile and met sepsis criteria. He was bolused with 2 L of lactated Ringer's. Chest x-ray showing bilateral hazy interstitial and patchy airspace disease concerning for pneumonia. Rounded density in the lower anterior hemithorax may be related to hiatal hernia. CBC remarkable for leukocytosis with a white count of 13, hemoglobin 12, platelets 383. Electrolytes WDL, creatinine 0.66, glucose 116. Lactic 0.9. Viral 4 Plex negative for influenza A/B, RSV, COVID. Patient previously started on antibiotics in the form of cefepime and vancomycin. Also, started on DuoNebs and loaded with IV Solu- Medrol. Patient currently being evaluated on the general medical floor. He is resting comfortably on 5 L/min nasal cannula. Does not appear to be distressed. Patient states he was clean from alcohol for proximately 9 months and then approximately 2 weeks ago started binge drinking 1/5/day. Was at [place] to detox. His last drink was on of last week. Denies any current drug abuse, previously cocaine userr but quit 1 year ago. Denies any chest pain, heart palpitations, lightheadedness or syncopal events, or lower extremity edema. While at the rehab facility he developed increased work of breathing, congested cough, and chills. He was febrile on arrival at our facility. He does have COPD. Smokes approximately 1/2 pack/day. He is on a combination of inhalers including Symbicort, Atrovent, and as needed albuterol. Normal saline infusing at 130 mL/h. Vital signs are stable. On 02/20/2025, patient is being seen for a follow-up. Remains on broad-spectrum antibiotics regarding bilateral lower lobe pneumonia and the patient remains on a combination of cefepime and vancomycin. Remains on oxygen and the patient is currently on 4 L of O2 nasal cannula. Afebrile. Hemodynamically stable. No signs of any delirium tremens. The blood culture is negative. Sputum culture is still negative. The white cell count is 14 with a hemoglobin 11.6 and a platelet count of 408. Electrolytes are all within normal limits. LFTs are also within normal limits. The viral screen was negative. Lactic acid level was down to 0.9. No other new complaints. No altered mentation. On 02/21/2025, the patient remains hypoxic on 4 L of oxygen by nasal cannula with a pulse ox of 96%. Remains bronchospastic and wheezy. The nasal swab was positive for MRSA and suspect MRSA bilateral pneumonia and the patient is currently on vancomycin and the patient was on cefepime. Remains on Symbicort, DuoNeb updrafts and IV Solu-Medrol 40 mg every 8 hours. Rest of the medications are essentially unchanged. No new complaints otherwise for now. No new labs f rom today. The sodium is at 141, potassium is at 4, BUN is 18 with a creatinine of 0.6. The white cell count is 14.5 with a hemoglobin 11.5 with a platelet count of 420. Objective - Vital Signs Vital signs: Vital Signs Temp 96.1 F L 02/21/25 02:02 Pulse 82 02/21/25 12:52 Resp 18 02/21/25 12:52 BP 132/64 02/21/25 07:22 Pulse Ox 94 L 02/21/25 07:22 FiO2 Intake & Output 02/20/25 02/21/25 02/21/25 18:59 06:59 18:59 Intake Total 650 Output Total 1500 Balance -850 Intake: Oral 650 Output: Urine 1500 Other: Voiding Method Toilet Urinal # Voids 1 - Exam GENERAL EXAM: Alert, 59-year-old male, morbidly obese, on 4 L/min nasal cannula, comfortable in no apparent distress. HEAD: Normocephalic and atraumatic EYES: Normal reaction of pupils, equal size. NOSE: Clear with pink turbinates. THROAT: No erythema or exudates. Crowded oropharyngeal airway, Mallampati score 4 NECK: No masses, no JVD. CHEST: No chest wall deformity. LUNGS: Equal air entry with minimal bibasilar crackles. On 5 L/min nasal cannu la. No conversational dyspnea or accessory muscle use.. CVS: S1 and S2 normal with no audible murmur, regular rhythm. No extra heart sounds ABDOMEN: No hepatosplenomegaly, active bowel sounds, no guarding or rigidity. SPINE: No scoliosis or deformity SKIN: No rashes CENTRAL NERVOUS SYSTEM: No focal deficits, tone is normal in all 4 extremities. EXTREMITIES: There is no peripheral edema, clubbing, or cyanosis. Peripheral pulses are intact. - Labs CBC & Chem 7: 02/21/25 02:26 02/21/25 02:26 Labs: Abnormal Lab Results - Last 24 Hours (Table) 02/20/25 02/20/25 02/20/25 Range/Units 04:11 17:36 21:46 WBC 14.05 H (4.50-10.00) X 10*3/uL RBC 3.81 L (4.40-5.60) X 10*6/uL Hgb 11.6 L (13.0-17.0) g/dL Hct 37.0 L (39.6-50.0) % MCV 97.1 H (80.0-97.0) FL MCHC 31.4 L (32.0-37.0) g/dL MPV 9.3 L (9.5-12.2) FL Immature Gran # 0.15 H (0.00-0.04) X 10*3/uL Neutrophils # 12.53 H (1.80-7.70) X 10*3/uL Lymphocytes # 0.78 L (0.90-5.00) X 10*3/uL Eosinophils # 0 L (0.04-0.35) X 10*3/uL BUN/Creatinine Ratio (12.00-20.00) Ratio Glucose (70-110) mg/dL POC Glucose (mg/dL) 161 H 186 H (70-110) mg/dL Calcium (8.7-10.3) mg/dL 02/21/25 02/21/25 02/21/25 Range/Units 02:26 02:26 06:11 WBC 14.57 H (4.50-10.00) X 10*3/uL RBC 3.79 L (4.40-5.60) X 10*6/uL Hgb 11.5 L (13.0-17.0) g/dL Hct 36.5 L (39.6-50.0) % MCV (80.0-97.0) FL MCHC 31.5 L (32.0-37.0) g/dL MPV (9.5-12.2) FL Immature Gran # 0.16 H (0.00-0.04) X 10*3/uL Neutrophils # 13.00 H (1.80-7.70) X 10*3/uL Lymphocytes # 0.74 L (0.90-5.00) X 10*3/uL Eosinophils # 0 L (0.04-0.35) X 10*3/uL BUN/Creatinine Ratio 30.00 H (12.00-20.00) Ratio Glucose 145 H (70-110) mg/dL POC Glucose (mg/dL) 144 H (70-110) mg/dL Calcium 7.9 L (8.7-10.3) mg/dL 02/21/25 Range/Units 11:34 WBC (4.50-10.00) X 10*3/uL RBC (4.40-5.60) X 10*6/uL Hgb (13.0-17.0) g/dL Hct (39.6-50.0) % MCV (80.0-97.0) FL MCHC (32.0-37.0) g/dL MPV (9.5-12.2) FL Immature Gran # (0.00-0.04) X 10*3/uL Neutrophils # (1.80-7.70) X 10*3/uL Lymphocytes # (0.90-5.00) X 10*3/uL Eosinophils # (0.04-0.35) X 10*3/uL BUN/Creatinine Ratio (12.00-20.00) Ratio Glucose (70-110) mg/dL POC Glucose (mg/dL) 161 H (70-110) mg/dL Calcium (8.7-10.3) mg/dL Microbiology - Last 24 Hours (Table) 02/19/25 09:57 Gram Stain - Final Sputum Sputum Culture - Final 02/19/25 18:39 Nasal Screen MRSA/MSSA - Final Nasal Swab Methicillin resist S. aureus 02/19/25 01:00 Blood Culture - Preliminary Blood Assessment and Plan Assessment: Bilateral community-acquired pneumonia, currently on a combination of cefepime and vancomycin. Suspected MRSA pneumonia. The patient has history of alcohol abuse. The patient has previous history of MRSA infection the patient is a chronic nasal MRSA colonizer. Currently on cefepime and vancomycin. Acute COPD exacerbation, secondary to above, unchanged compared to yesterday Acute hypoxemic respiratory failure, currently on 4 L/min nasal cannula, chest x-ray remarkable for bilateral hazy interstitial and patchy airspace disease concerning for pneumonia. Rounded density in the lower anterior hemithorax may be related to hiatal hernia. Alcohol abuse, last drink approximately 1 week ago, potential referral 1/5/day History of alcohol withdrawal seizures History of cocaine use Current ongoing tobacco dependence, 1/2 pack/day smoker History of previous mechanical ventilator dependent respiratory failure secondary to influenza infection, hospitalized at [facility] Morbid obesity, with a BMI of 41 kg/m Plan: Still symptomatic, clinically unchanged Continue supplemental oxygen, currently on 4 L/min nasal cannula, wean as tolerated. Continue antibiotic coverage in the form of cefepime and vancomycin Sputum sample culture is pending Blood cultures still pending, Viral 4 Plex negative for influenza A/B RSV, COVID. Monitor for alcohol withdrawal, however, patient's last drink was over 1 week ago, no signs of any delirium tremens Repeat chest x-ray will neck 24 to 48 hours Smoking cessation counseling Continue DuoNeb the regiment [id number] Continue Symbicort IV Solu-Medrol Lactated Ringer at rate of 130 cc an hour We will continue to follow,
[2025-02-22 06:01] LABS: Glucose,Whole Blood 132 mg/dL (70-110)
--- NOTE | 2025-02-22 08:23 | P.PN ---
Subjective This is a pleasant 59 years old male with past medical history with chronic obstructive pulmonary disease. Presents because of worsening dyspnea over 2 days associated with cough and yellow phlegm with no chest pain No specific GI/ symptoms has little headache but no weakness numbness or dizziness Also was complaining from exertional dyspnea. He says he quit smoking but relapsed few months ago and he started smoking again about less than 10 cigarettes/day, he was counseled to quit he agrees but he does not want nicotine patch Patient was at [place] because he drinks 2/5 day, he has the pression but no suicidal or homicidal ideation. He denies hallucination or delusions. He looks calm and relaxed in bed He had low-grade temperature 100.3, heart rate 114 respiratory 22 blood pressure 173/91 Chest x-ray showing bilateral interstitial and patchy airspace disease EKG showing sinus tachycardia [address]-T changes 02/20 Patient still wheezing although he looks somewhat better Still on Ringer lactate at 130 mL/h Still getting cefepime and IV vancomycin and Solu-Medrol lowered to 40 mg 3 times a day Patient complaining from abdominal pain with cough Tylenol 3 is ordered Also he wants something to loosen his secretion and Tessalon was given for him He feels depressed but no suicidal, no alcohol withdrawal symptoms 02/21 Patient still improving is still short of breath Significant coughing also improving Abdominal pain secondary to coughing feels better Still has extensive wheezing On 4 L oxygen with saturation 94 to 95%. Sugars controlled. WBC is 14.5, hemoglobin 11.5. Objective - Vital Signs Vital signs: Vital Signs Temp 96.1 F L 02/21/25 02:02 Pulse 88 02/21/25 09:41 Resp 18 02/21/25 09:41 BP 132/64 02/21/25 07:22 Pulse Ox 94 L 02/21/25 07:22 FiO2 Intake & Output 02/20/25 02/21/25 02/21/25 18:59 06:59 18:59 Intake Total 650 Output Total 1500 Balance -850 Intake: Oral 650 Output: Urine 1500 Other: Voiding Method Toilet Urinal # Voids 1 - Exam GENERAL: The patient is alert and oriented x3, not in any acute distress. Well developed, well nourished. HEENT: Pupils are round and equally reacting to light. EOMI. No scleral icterus. No conjunctival pallor. Normocephalic, atraumatic. No pharyngeal erythema. No thyromegaly. CARDIOVASCULAR: S1 and S2 present. No murmurs, rubs, or gallops. -PULMONARY: Chest is clear to auscultation, n bilateral expiratory wheezing , no crackles. ABDOMEN: Soft, nontender, nondistended, normoactive bowel sounds. No palpable organomegaly. MUSCULOSKELETAL: No joint swelling or deformity. EXTREMITIES: No cyanosis, clubbing, or pedal edema. NEUROLOGICAL: Gross neurological examination did not reveal any focal deficits. SKIN: No rashes. no petechiae. - Labs CBC & Chem 7: 02/21/25 02:26 02/21/25 02:26 Labs: Abnormal Lab Results - Last 24 Hours (Table) 02/20/25 02/20/25 02/20/25 Range/Units 04:11 11:17 17:36 WBC 14.05 H (4.50-10.00) X 10*3/uL RBC 3.81 L (4.40-5.60) X 10*6/uL Hgb 11.6 L (13.0-17.0) g/dL Hct 37.0 L (39.6-50.0) % MCV 97.1 H (80.0-97.0) FL MCHC 31.4 L (32.0-37.0) g/dL MPV 9.3 L (9.5-12.2) FL Immature Gran # 0.15 H (0.00-0.04) X 10*3/uL Neutrophils # 12.53 H (1.80-7.70) X 10*3/uL Lymphocytes # 0.78 L (0.90-5.00) X 10*3/uL Eosinophils # 0 L (0.04-0.35) X 10*3/uL POC Glucose (mg/dL) 162 H 161 H (70-110) mg/dL 02/20/25 02/21/25 Range/Units 21:46 06:11 WBC (4.50-10.00) X 10*3/uL RBC (4.40-5.60) X 10*6/uL Hgb (13.0-17.0) g/dL Hct (39.6-50.0) % MCV (80.0-97.0) FL MCHC (32.0-37.0) g/dL MPV (9.5-12.2) FL Immature Gran # (0.00-0.04) X 10*3/uL Neutrophils # (1.80-7.70) X 10*3/uL Lymphocytes # (0.90-5.00) X 10*3/uL Eosinophils # (0.04-0.35) X 10*3/uL POC Glucose (mg/dL) 186 H 144 H (70-110) mg/dL Microbiology - Last 24 Hours (Table) 02/19/25 18:39 Nasal Screen MRSA/MSSA - Final Nasal Swab Methicillin resist S. aureus 02/19/25 09:57 Gram Stain - Preliminary Sputum Sputum Culture - Preliminary 02/19/25 01:00 Blood Culture - Preliminary Blood Assessment and Plan Assessment: Acute COPD exacerbation Acute bibasilar pneumonia right more than left suspicious for pneumonia with gram-negative bacilli and MRSA Sepsis with fever and leukocytosis Acute hypoxic respiratory failure Nicotine dependence Alcohol use disorder at risk of alcohol withdrawal Depression without suicidal or homicidal ideation Obesity with BMI of 41 Plan: Continue with IV Solu-Medrol Continue cefepime and IV vancomycin Continue with IV fluid currently Ringer lactate at 130 Continue with Lovenox GI prophylaxis: Pepcid DVT prophylaxis: Pepcid Further recommendation based on the clinical course Patient was counseled to quit smoking drinking Prognosis is guarded
--- NOTE | 2025-02-22 12:08 | XR ---
EXAMINATION TYPE: XR chest 2V DATE OF EXAM: 02/22/2025 11:52 AM COMPARISON: 02/18/2025 CLINICAL INDICATION: Male, 59 years old with history of SOB: Shortness of breath TECHNIQUE: XR chest 2V views of the chest are obtained. FINDINGS: Scattered senescent parenchymal changes noted. Hyperinflation compatible with COPD. No evidence for infiltrate. No evidence for atelectasis. Heart size is stable. Mediastinal structures are stable and grossly unremarkable. No evidence for hilar prominence. Degenerative changes dorsal spine. IMPRESSION: 1. No evidence for acute pulmonary disease. [facility], , 02/22/2025 12:06 PM
[2025-02-22 12:12] LABS: Glucose,Whole Blood 211 mg/dL (70-110)
--- NOTE | 2025-02-22 13:50 | P.PN ---
Subjective Progress Note Date: 02/22/25 Patient is a 59-year-old male with past medical history significant for alcohol abuse sent in from [place] with increased work of breathing x 3 days and congested cough along with fevers. He is from the [facility]. He does have history of COPD and previously previous intubation due to influenza infection. He was hypoxic on arrival and placed on supplemental oxygen. He was tachycardic and febrile and met sepsis criteria. He was bolused with 2 L of lactated Ringer's. Chest x-ray showing bilateral hazy interstitial and patchy airspace disease concerning for pneumonia. Rounded density in the lower anterior hemithorax may be related to hiatal hernia. CBC remarkable for leukocytosis with a white count of 13, hemoglobin 12, platelets 383. Electrolytes WDL, creatinine 0.66, glucose 116. Lactic 0.9. Viral 4 Plex negative for influenza A/B, RSV, COVID. Patient previously started on antibiotics in the form of cefepime and vancomycin. Also, started on DuoNebs and loaded with IV Solu- Medrol. Patient currently being evaluated on the general medical floor. He is resting comfortably on 5 L/min nasal cannula. Does not appear to be distressed. Patient states he was clean from alcohol for proximately 9 months and then approximately 2 weeks ago started binge drinking 1/5/day. Was at [place] to detox. His last drink was on of last week. Denies any current drug abuse, previously cocaine userr but quit 1 year ago. Denies any chest pain, heart palpitations, lightheadedness or syncopal events, or lower extremity edema. While at the rehab facility he developed increased work of breathing, congested cough, and chills. He was febrile on arrival at our facility. He does have COPD. Smokes approximately 1/2 pack/day. He is on a combination of inhalers including Symbicort, Atrovent, and as needed albuterol. Normal saline infusing at 130 mL/h. Vital signs are stable. On 02/20/2025, patient is being seen for a follow-up. Remains on broad-spectrum antibiotics regarding bilateral lower lobe pneumonia and the patient remains on a combination of cefepime and vancomycin. Remains on oxygen and the patient is currently on 4 L of O2 nasal cannula. Afebrile. Hemodynamically stable. No signs of any delirium tremens. The blood culture is negative. Sputum culture is still negative. The white cell count is 14 with a hemoglobin 11.6 and a platelet count of 408. Electrolytes are all within normal limits. LFTs are also within normal limits. The viral screen was negative. Lactic acid level was down to 0.9. No other new complaints. No altered mentation. On 02/21/2025, the patient remains hypoxic on 4 L of oxygen by nasal cannula with a pulse ox of 96%. Remains bronchospastic and wheezy. The nasal swab was positive for MRSA and suspect MRSA bilateral pneumonia and the patient is currently on vancomycin and the patient was on cefepime. Remains on Symbicort, DuoNeb updrafts and IV Solu-Medrol 40 mg every 8 hours. Rest of the medications are essentially unchanged. No new complaints otherwise for now. No new labs fr om today. The sodium is at 141, potassium is at 4, BUN is 18 with a creatinine of 0.6. The white cell count is 14.5 with a hemoglobin 11.5 with a platelet count of 420. The patient is seen today February 22, 2025 in follow-up on the regular medical floor. He is currently sitting up in a chair at the bedside. Awake and alert in no acute distress. Maintaining O2 saturations in the mid 90s on 2 L/min per nasal cannula. Has been afebrile. Hemodynamically stable. Nasal swab was positive for MRSA. Sputum culture revealed no growth. Blood culture revealed no growth. Glucose 132. He is continued on DuoNeb inhalations, Symbicort, Solu-Medrol. NicoDerm patch in place. Continued on vancomycin and cefepime. Lovenox for DVT prophylaxis. Tessalon Perles for his cough. Today's chest x- ray shows no acute pulmonary process. Objective - Vital Signs Vital signs: Vital Signs Temp 97.8 F 02/22/25 07:34 Pulse 76 02/22/25 12:20 Resp 18 02/22/25 08:00 BP 152/94 02/22/25 07:34 Pulse Ox 95 02/22/25 09:13 FiO2 Intake & Output 02/21/25 02/22/25 02/22/25 18:59 06:59 18:59 Intake Total 2940 Output Total 1100 2000 Balance -1100 940 Intake: Oral 2940 Output: Urine 1100 2000 Other: Voiding Method Urinal Urinal # Bowel Movements 0 - Exam GENERAL EXAM: Alert, 59-year-old male, morbidly obese, sitting up in a chair, on 2 L/min nasal cannula, comfortable in no apparent distress. HEAD: Normocephalic and atraumatic EYES: Normal reaction of pupils, equal size. NOSE: Clear with pink turbinates. THROAT: No erythema or exudates. Crowded oropharyngeal airway, Mallampati score 4 NECK: No masses, no JVD. CHEST: No chest wall deformity. LUNGS: Equal air entry with no crackles, wheeze or rhonchi. No conversational d yspnea or accessory muscle use. CVS: S1 and S2 normal with no audible murmur, regular rhythm. No extra heart sounds ABDOMEN: No hepatosplenomegaly, active bowel sounds, no guarding or rigidity. SPINE: No scoliosis or deformity SKIN: No rashes CENTRAL NERVOUS SYSTEM: No focal deficits, tone is normal in all 4 extremities. EXTREMITIES: There is no peripheral edema, clubbing, or cyanosis. Peripheral pulses are intact. - Labs CBC & Chem 7: 02/21/25 02:26 02/21/25 02:26 Labs: Abnormal Lab Results - Last 24 Hours (Table) 02/21/25 02/21/25 02/22/25 Range/Units 16:35 20:45 05:59 POC Glucose (mg/dL) 194 H 175 H 132 H (70-110) mg/dL 02/22/25 Range/Units 12:11 POC Glucose (mg/dL) 211 H (70-110) mg/dL Microbiology - Last 24 Hours (Table) 02/19/25 01:00 Blood Culture - Preliminary Blood 02/19/25 09:57 Gram Stain - Final Sputum Sputum Culture - Final Assessment and Plan Assessment: Bilateral community-acquired pneumonia, currently on a combination of cefepime and vancomycin. Suspected MRSA pneumonia. The patient has previous history of MRSA infection the patient is a chronic nasal MRSA colonizer. Currently on cefepime and vancomycin. Acute COPD exacerbation, secondary to above, unchanged compared to yesterday Acute hypoxemic respiratory failure, currently on 2 L/min nasal cannula, chest x-ray remarkable for bilateral hazy interstitial and patchy airspace disease concerning for pneumonia. Rounded density in the lower anterior hemithorax may be related to hiatal hernia. Follow-up chest x-ray revealing no acute pulmonary process. Alcohol abuse, last drink approximately 1 week ago, potential referral 1/5/day History of alcohol withdrawal seizures History of cocaine use Current ongoing tobacco dependence, 1/2 pack/day smoker History of previous mechanical ventilator dependent respiratory failure secondary to influenza infection, hospitalized at [facility] Morbid obesity, with a BMI of 41 kg/m Plan: The patient was seen and evaluated Chest x-ray, labs and medications reviewed Chest x-ray reveals no acute pulmonary process Sputum culture was negative Currently on 2 L nasal cannula Titrate down/off the FiO2 as tolerated Continue antibiotics for now Increase his activity as tolerated We will continue to follow I have personally seen and examined the patient, performed the documentation and the assessment and plan as written. Number of minutes spent on the visit: 10 Dictation was produced using [employer] dictation software. Please excuse any grammatical, word or spelling errors.
[2025-02-22] MEDS: FUROSEMIDE 10 MG/ML 4 ML VIAL IV STA (16:46)
[2025-02-22 17:10] LABS: Glucose,Whole Blood 206 mg/dL (70-110)
[2025-02-22 20:35] LABS: Glucose,Whole Blood 158 mg/dL (70-110)
--- NOTE | 2025-02-23 02:26 | PN ---
PROGRESS NOTE DATE OF SERVICE: 02/22/2025 SUBJECTIVE: This is a 59-year-old gentleman who was admitted with bilateral community- acquired pneumonia and COPD exacerbation, closely monitored. No chest pain, no palpitation. The most recent chest x-ray which I reviewed personally showed improvement in the opacities. PHYSICAL EXAMINATION: VITAL SIGNS: Pulse is 84, blood pressure n, respirations 18. CHEST: Bilateral scattered rhonchi. ABDOMEN: Soft, nontender. EXTREMITIES: Legs, no edema. NERVOUS SYSTEM: Nonfocal. LABORATORY DATA: Reviewed. ASSESSMENT: 1. Chronic obstructive pulmonary disease exacerbation with bilateral pneumonia, possibly gram-negative. 2. Acute hypoxic respiratory failure. 3. History of EtOH. 4. History of cocaine. 5. Multiple complex medical issues. RECOMMENDATIONS: Recommend to continue current management and continue symptomatic treatment. Continue with antibiotics. I would recommend bronchodilators, steroids. The patient is on cefepime. Recommend repeat labs. Closely follow with Pulmonary. Guarded prognosis. Further recommendations to follow n MMODL / IJN: [id number] / MTDD
[2025-02-23] MEDS: VANCOMYCIN TROUGH DUE 1 EACH MISC MISCELLANE ONE (05:59)
[2025-02-23] MEDS: VANCOMYCIN 1,750 MG in SODIUM CHLORIDE 0.9% 500 ML 500 ML IVPB SCH (06:00)
[2025-02-23 06:15] LABS: Glucose,Whole Blood 151 mg/dL (70-110)
[2025-02-23 06:40] LABS: ALT 57 U/L (4-49); AST 26 U/L (17-59); African American GFR (CKD) >90 (>60 ml/min/1.73 sqM); Albumin 3.5 g/dL (3.5-5.0); Albumin/Globulin Ratio 1.4; Alkaline Phosphatase 65 U/L (38-126); Anion Gap 9 mmol/L; Blood Urea Nitrogen 17 mg/dL (9-20); Calcium 7.8 mg/dL (8.4-10.2); Carbon Dioxide 33 mmol/L (22-30); Chloride 98 mmol/L (98-107); Globulin 2.5 g/dL; Glucose 147 mg/dL (74-99); Non-African American GFR(CKD) >90 (>60 ml/min/1.73 sqM); Potassium 3.8 mmol/L (3.5-5.1); Sodium 140 mmol/L (137-145); Total Protein 6.0 g/dL (6.3-8.2)
[2025-02-23 08:00] LABS: Basophils # (A) 0.04 10*3/uL (0.00-0.10); Basophils % (A) 0.4 %; Eosinophils # (A) 0.13 10*3/uL (0.04-0.35); Eosinophils % (A) 1.3 %; HCT 35.5 % (39.6-50.0); HGB 11.5 g/dL (13.0-17.0); Lymphocytes # (A) 0.67 10*3/uL (0.90-5.00); Lymphocytes % (A) 6.8 %; MCH 30.3 pg (27.0-32.0); MCHC 32.4 g/dL (32.0-37.0); MCV 93.7 fL (80.0-97.0); Monocytes # (A) 0.54 10*3/uL (0.20-1.00); Monocytes % (A) 5.5 %; Neutrophils # (A) 7.90 10*3/uL (1.80-7.70); Neutrophils % (A) 79.8 %; Platelet Count 410 10*3/uL (140-440); RBC 3.79 10*6/uL (4.40-5.60); RDW 13.2 % (11.5-14.5); WBC 9.89 10*3/uL (4.50-10.00)
--- NOTE | 2025-02-23 10:32 | P.PN ---
Subjective Progress Note Date: 02/23/25 Patient is a 59-year-old male with past medical history significant for alcohol abuse sent in from [place] with increased work of breathing x 3 days and congested cough along with fevers. He is from the [facility]. He does have history of COPD and previously previous intubation due to influenza infection. He was hypoxic on arrival and placed on supplemental oxygen. He was tachycardic and febrile and met sepsis criteria. He was bolused with 2 L of lactated Ringer's. Chest x-ray showing bilateral hazy interstitial and patchy airspace disease concerning for pneumonia. Rounded density in the lower anterior hemithorax may be related to hiatal hernia. CBC remarkable for leukocytosis with a white count of 13, hemoglobin 12, platelets 383. Electrolytes WDL, creatinine 0.66, glucose 116. Lactic 0.9. Viral 4 Plex negative for influenza A/B, RSV, COVID. Patient previously started on antibiotics in the form of cefepime and vancomycin. Also, started on DuoNebs and loaded with IV Solu- Medrol. Patient currently being evaluated on the general medical floor. He is resting comfortably on 5 L/min nasal cannula. Does not appear to be distressed. Patient states he was clean from alcohol for proximately 9 months and then approximately 2 weeks ago started binge drinking 1/5/day. Was at [facility] to detox. His last drink was on of last week. Denies any current drug abuse, previously cocaine userr but quit 1 year ago. Denies any chest pain, heart palpitations, lightheadedness or syncopal events, or lower extremity edema. While at the rehab facility he developed increased work of breathing, congested cough, and chills. He was febrile on arrival at our facility. He does have COPD. Smokes approximately 1/2 pack/day. He is on a combination of inhalers including Symbicort, Atrovent, and as needed albuterol. Normal saline infusing at 130 mL/h. Vital signs are stable. On 02/20/2025, patient is being seen for a follow-up. Remains on broad-spectrum antibiotics regarding bilateral lower lobe pneumonia and the patient remains on a combination of cefepime and vancomycin. Remains on oxygen and the patient is currently on 4 L of O2 nasal cannula. Afebrile. Hemodynamically stable. No signs of any delirium tremens. The blood culture is negative. Sputum culture is still negative. The white cell count is 14 with a hemoglobin 11.6 and a platelet count of 408. Electrolytes are all within normal limits. LFTs are also within normal limits. The viral screen was negative. Lactic acid level was down to 0.9. No other new complaints. No altered mentation. On 02/21/2025, the patient remains hypoxic on 4 L of oxygen by nasal cannula with a pulse ox of 96%. Remains bronchospastic and wheezy. The nasal swab was positive for MRSA and suspect MRSA bilateral pneumonia and the patient is currently on vancomycin and the patient was on cefepime. Remains on Symbicort, DuoNeb updrafts and IV Solu-Medrol 40 mg every 8 hours. Rest of the medications are essentially unchanged. No new complaints otherwise for now. No new labs fr om today. The sodium is at 141, potassium is at 4, BUN is 18 with a creatinine of 0.6. The white cell count is 14.5 with a hemoglobin 11.5 with a platelet count of 420. The patient is seen today February 22, 2025 in follow-up on the regular medical floor. He is currently sitting up in a chair at the bedside. Awake and alert in no acute distress. Maintaining O2 saturations in the mid 90s on 2 L/min per nasal cannula. Has been afebrile. Hemodynamically stable. Nasal swab was positive for MRSA. Sputum culture revealed no growth. Blood culture revealed no growth. Glucose 132. He is continued on DuoNeb inhalations, Symbicort, Solu-Medrol. NicoDerm patch in place. Continued on vancomycin and cefepime. Lovenox for DVT prophylaxis. Tessalon Perles for his cough. Today's chest x- ray shows no acute pulmonary process. The patient is seen today February 23, 2025 in follow-up on the regular medical floor. He is currently sitting up in bed. Awake and alert in no acute distress. Maintaining O2 saturations in the 90s on 2 L/min per nasal cannula. He denies any worsening shortness of breath, cough or congestion. He is still somewhat bronchospastic and wheezing. He remains on vancomycin and cefepime. Nasal swab was positive for MRSA. Sputum culture revealed no growth. Blood culture revealed no growth. White count 9.8. Hemoglobin 11.5. Platelets 410. Sodium 140. Bicarb 33. BUN 17. Creatinine 0.51. Glucose 147. He remains on DuoNeb inhalations, Symbicort, Solu-Medrol. NicoDerm patch in place. Lovenox for DVT prophylaxis. Objective - Vital Signs Vital signs: Vital Signs Temp 97.8 F 02/23/25 07:30 Pulse 78 02/23/25 07:51 Resp 20 02/23/25 09:42 BP 137/90 02/23/25 07:30 Pulse Ox 97 02/23/25 07:54 FiO2 Intake & Output 02/22/25 02/23/25 02/23/25 18:59 06:59 18:59 Intake Total 380 200 Output Total 1800 875 Balance -1420 -875 200 Intake: Oral 380 200 Output: Urine 1800 875 Other: Voiding Method Urinal Urinal # Voids 3 - Exam GENERAL EXAM: Alert, 59-year-old male, morbidly obese, resting in bed, on 2 L/min nasal cannula, in no apparent distress. HEAD: Normocephalic and atraumatic EYES: Normal reaction of pupils, equal size. NOSE: Clear with pink turbinates. THROAT: No erythema or exudates. Crowded oropharyngeal airway, Mallampati score 4 NECK: No masses, no JVD. CHEST: No chest wall deformity. LUNGS: Equal air entry with no crackles, wheeze or rhonchi. No conversational dyspnea or accessory muscle use. CVS: S1 and S2 normal with no audible murmur, regular rhythm. No extra heart sounds ABDOMEN: No hepatosplenomegaly, active bowel sounds, no guarding or rigidity. SPINE: No scoliosis or deformity SKIN: No rashes CENTRAL NERVOUS SYSTEM: No focal deficits, tone is normal in all 4 extremities. EXTREMITIES: There is no peripheral edema, clubbing, or cyanosis. Peripheral pulses are intact. - Labs CBC & Chem 7: 02/23/25 05:43 02/23/25 05:43 Labs: Abnormal Lab Results - Last 24 Hours (Table) 02/22/25 02/22/25 02/22/25 Range/Units 12:11 17:08 20:34 RBC (4.40-5.60) 10*6/uL Hgb (13.0-17.0) g/dL Hct (39.6-50.0) % MPV (9.5-12.2) fL Immature Gran # (0.00-0.04) 10*3/uL Carbon Dioxide (22-30) mmol/L Creatinine (0.66-1.25) mg/dL Glucose (74-99) mg/dL POC Glucose (mg/dL) 211 H 206 H 158 H (70-110) mg/dL Calcium (8.4-10.2) mg/dL ALT (4-49) U/L Total Protein (6.3-8.2) g/dL 02/23/25 02/23/25 02/23/25 Range/Units 05:43 05:43 06:13 RBC 3.79 L (4.40-5.60) 10*6/uL Hgb 11.5 L (13.0-17.0) g/dL Hct 35.5 L (39.6-50.0) % MPV 9.3 L (9.5-12.2) fL Immature Gran # 0.61 H (0.00-0.04) 10*3/uL Carbon Dioxide 33 H (22-30) mmol/L Creatinine 0.51 L (0.66-1.25) mg/dL Glucose 147 H (74-99) mg/dL POC Glucose (mg/dL) 151 H (70-110) mg/dL Calcium 7.8 L (8.4-10.2) mg/dL ALT 57 H (4-49) U/L Total Protein 6.0 L (6.3-8.2) g/dL Microbiology - Last 24 Hours (Table) 02/19/25 01:00 Blood Culture - Preliminary Blood Assessment and Plan Assessment: Bilateral community-acquired pneumonia, currently on a combination of cefepime and vancomycin. Suspected MRSA pneumonia. The patient has previous history of MRSA infection the patient is a chronic nasal MRSA colonizer. Currently on cefepime and vancomycin. Acute COPD exacerbation, secondary to above Acute hypoxemic respiratory failure, currently on 2 L/min nasal cannula, chest x-ray remarkable for bilateral hazy interstitial and patchy airspace disease concerning for pneumonia. Rounded density in the lower anterior hemithorax may be related to hiatal hernia. Follow-up chest x-ray revealing no acute pulmonary process. Alcohol abuse, last drink approximately 1 week ago, potential referral 1/5/day History of alcohol withdrawal seizures History of cocaine use Current ongoing tobacco dependence, 1/2 pack/day smoker History of previous mechanical ventilator dependent respiratory failure sec ondary to influenza infection, hospitalized at [facility] Morbid obesity, with a BMI of 41 kg/m Plan: The patient was seen and evaluated Labs and medications reviewed Still bronchospastic and wheezing Currently on 2 L nasal cannula Titrate down/off the FiO2 as tolerated Continue antibiotics Increase his activity as tolerated Not quite ready for discharge We will continue to follow I have personally seen and examined the patient, performed the documentation and the assessment and plan as written. Number of minutes spent on the visit: 10 Dictation was produced using [email or web address] dictation software. Please excuse any grammatical, word or spelling errors.
[2025-02-23 11:35] LABS: Glucose,Whole Blood 203 mg/dL (70-110)
[2025-02-23] MEDS: FUROSEMIDE 10 MG/ML 2 ML VIAL IV ONE (16:57)
[2025-02-23] MEDS: methylPREDNISolone SOD SUCCI 125 MG/2 ML VIAL IV SCH (16:57)
[2025-02-23 17:07] LABS: Glucose,Whole Blood 214 mg/dL (70-110)
[2025-02-23 20:59] LABS: Glucose,Whole Blood 153 mg/dL (70-110)
--- NOTE | 2025-02-24 00:24 | PN ---
PROGRESS NOTE DATE OF SERVICE: 02/23/2025 SUBJECTIVE: This 59-year-old gentleman admitted with bilateral community-acquired pneumonia as well as COPD, is being closely monitored. The patient is from [place]. No chest pain. No palpitation. Oxygen is improving. PHYSICAL EXAMINATION: VITAL SIGNS: Pulse 87, blood pressure 120/76, respirations 20. CHEST: Bilateral scattered rhonchi and crackles. ABDOMEN: Soft. NERVOUS SYSTEM: No focal deficit. ASSESSMENT: 1. Chronic obstructive pulmonary disease exacerbation with bilateral pneumonia possibly gram-negative. 2. Acute hypoxic respiratory failure, improving. 3. History of EtOH. 4. History of cocaine. 5. Multiple complex medical issues. RECOMMENDATIONS: Continue current management with bronchodilators. The patient received some dose of Lasix. Continue with antibiotics possibly return back to [place] within 24 hours. MMODL / IJN: [id number] /
[2025-02-24 06:25] LABS: Glucose,Whole Blood 146 mg/dL (70-110)
[2025-02-24 11:18] LABS: Glucose,Whole Blood 217 mg/dL (70-110)
--- NOTE | 2025-02-24 14:42 | P.PN ---
Subjective Progress Note Date: 02/24/25 Patient is a 59-year-old male with past medical history significant for alcohol abuse sent in from [place] with increased work of breathing x 3 days and congested cough along with fevers. He is from the [facility]. He does have history of COPD and previously previous intubation due to influenza infection. He was hypoxic on arrival and placed on supplemental oxygen. He was tachycardic and febrile and met sepsis criteria. He was bolused with 2 L of lactated Ringer's. Chest x-ray showing bilateral hazy interstitial and patchy airspace disease concerning for pneumonia. Rounded density in the lower anterior hemithorax may be related to hiatal hernia. CBC remarkable for leukocytosis with a white count of 13, hemoglobin 12, platelets 383. Electrolytes WDL, creatinine 0.66, glucose 116. Lactic 0.9. Viral 4 Plex negative for influenza A/B, RSV, COVID. Patient previously started on antibiotics in the form of cefepime and vancomycin. Also, started on DuoNebs and loaded with IV Solu- Medrol. Patient currently being evaluated on the general medical floor. He is resting comfortably on 5 L/min nasal cannula. Does not appear to be distressed. Patient states he was clean from alcohol for proximately 9 months and then approximately 2 weeks ago started binge drinking 1/5/day. Was at [place] to detox. His last drink was on of last week. Denies any current drug abuse, previously cocaine userr but quit 1 year ago. Denies any chest pain, heart palpitations, lightheadedness or syncopal events, or lower extremity edema. While at the rehab facility he developed increased work of breathing, congested cough, and chills. He was febrile on arrival at our facility. He does have COPD. Smokes approximately 1/2 pack/day. He is on a combination of inhalers including Symbicort, Atrovent, and as needed albuterol. Normal saline infusing at 130 mL/h. Vital signs are stable. On 02/20/2025, patient is being seen for a follow-up. Remains on broad-spectrum antibiotics regarding bilateral lower lobe pneumonia and the patient remains on a combination of cefepime and vancomycin. Remains on oxygen and the patient is currently on 4 L of O2 nasal cannula. Afebrile. Hemodynamically stable. No signs of any delirium tremens. The blood culture is negative. Sputum culture is still negative. The white cell count is 14 with a hemoglobin 11.6 and a platelet count of 408. Electrolytes are all within normal limits. LFTs are also within normal limits. The viral screen was negative. Lactic acid level was down to 0.9. No other new complaints. No altered mentation. On 02/21/2025, the patient remains hypoxic on 4 L of oxygen by nasal cannula with a pulse ox of 96%. Remains bronchospastic and wheezy. The nasal swab was positive for MRSA and suspect MRSA bilateral pneumonia and the patient is currently on vancomycin and the patient was on cefepime. Remains on Symbicort, DuoNeb updrafts and IV Solu-Medrol 40 mg every 8 hours. Rest of the medications are essentially unchanged. No new complaints otherwise for now. No new labs fr om today. The sodium is at 141, potassium is at 4, BUN is 18 with a creatinine of 0.6. The white cell count is 14.5 with a hemoglobin 11.5 with a platelet count of 420. The patient is seen today February 22, 2025 in follow-up on the regular medical floor. He is currently sitting up in a chair at the bedside. Awake and alert in no acute distress. Maintaining O2 saturations in the mid 90s on 2 L/min per nasal cannula. Has been afebrile. Hemodynamically stable. Nasal swab was positive for MRSA. Sputum culture revealed no growth. Blood culture revealed no growth. Glucose 132. He is continued on DuoNeb inhalations, Symbicort, Solu-Medrol. NicoDerm patch in place. Continued on vancomycin and cefepime. Lovenox for DVT prophylaxis. Tessalon Perles for his cough. Today's chest x- ray shows no acute pulmonary process. The patient is seen today February 23, 2025 in follow-up on the regular medical floor. He is currently sitting up in bed. Awake and alert in no acute distress. Maintaining O2 saturations in the 90s on 2 L/min per nasal cannula. He denies any worsening shortness of breath, cough or congestion. He is still somewhat bronchospastic and wheezing. He remains on vancomycin and cefepime. Nasal swab was positive for MRSA. Sputum culture revealed no growth. Blood culture revealed no growth. White count 9.8. Hemoglobin 11.5. Platelets 410. Sodium 140. Bicarb 33. BUN 17. Creatinine 0.51. Glucose 147. He remains on DuoNeb inhalations, Symbicort, Solu-Medrol. NicoDerm patch in place. Lovenox for DVT prophylaxis. The patient is seen today February 24, 2025 in follow-up on the regular medical floor. He is currently up in a chair. Awake and alert in no acute distress. Continues with some cough and congestion. Some wheezing. Not quite back to baseline. He is maintaining O2 saturations in the mid 90s on room air oxygen. He has been afebrile. Hemodynamically stable. Glucose 217. He remains on DuoNeb inhalations, Symbicort, Solu-Medrol. NicoDerm patch in place. Remains on vancomycin and cefepime. Lovenox for DVT prophylaxis. Objective - Vital Signs Vital signs: Vital Signs Temp 97.8 F 02/24/25 14:00 Pulse 91 02/24/25 14:00 Resp 16 02/24/25 14:00 BP 172/78 02/24/25 14:00 Pulse Ox 94 L 02/24/25 14:00 FiO2 Intake & Output 02/23/25 02/24/25 02/24/25 18:59 06:59 18:59 Intake Total 550 Output Total 400 Balance 550 -400 Intake: Oral 550 Output: Urine 400 Other: Voiding Method Urinal Toilet Urinal # Voids 1 1 - Exam GENERAL EXAM: Alert, 59-year-old male, morbidly obese, sitting up in a chair, on room air oxygen, in no apparent distress. HEAD: Normocephalic and atraumatic EYES: Normal reaction of pupils, equal size. NOSE: Clear with pink turbinates. THROAT: No erythema or exudates. Crowded oropharyngeal airway, Mallampati score 4 NECK: No masses, no JVD. CHEST: No chest wall deformity. LUNGS: Equal air entry with bilateral scattered rhonchi, wheeze. No conversational dyspnea or accessory muscle use. CVS: S1 and S2 normal with no audible murmur, regular rhythm. No extra heart sounds ABDOMEN: No hepatosplenomegaly, active bowel sounds, no guarding or rigidity. SPINE: No scoliosis or deformity SKIN: No rashes CENTRAL NERVOUS SYSTEM: No focal deficits, tone is normal in all 4 extremities. EXTREMITIES: There is no peripheral edema, clubbing, or cyanosis. Peripheral pulses are intact. - Labs CBC & Chem 7: 02/23/25 05:43 02/23/25 05:43 Labs: Abnormal Lab Results - Last 24 Hours (Table) 02/23/25 02/23/25 02/24/25 Range/Units 17:06 20:58 06:24 POC Glucose (mg/dL) 214 H 153 H 146 H (70-110) mg/dL 02/24/25 Range/Units 11:16 POC Glucose (mg/dL) 217 H (70-110) mg/dL Microbiology - Last 24 Hours (Table) 02/19/25 01:00 Blood Culture - Final Blood Assessment and Plan Assessment: Bilateral community-acquired pneumonia. Suspected MRSA pneumonia. The patient has previous history of MRSA infection the patient is a chronic nasal MRSA colonizer. Currently on cefepime and vancomycin. Acute COPD exacerbation, secondary to above Acute hypoxemic respiratory failure, improved and on room air oxygen, chest x- ray remarkable for bilateral hazy interstitial and patchy airspace disease concerning for pneumonia. Rounded density in the lower anterior hemithorax may be related to hiatal hernia. Follow-up chest x-ray revealing no acute pulmonary process. Alcohol abuse, last drink approximately 1 week ago, potential referral 1/5/day History of alcohol withdrawal seizures History of cocaine use Current ongoing tobacco dependence, 1/2 pack/day smoker History of previous mechanical ventilator dependent respiratory failure secondary to influenza infection, hospitalized at [facility] Morbid obesity, with a BMI of 41 kg/m Plan: The patient was seen and evaluated Labs and medications reviewed Currently on room air oxygen Continue cefepime and Vancomycin Continue DuoNeb inhalations Continue Symbicort Continue Solu-Medrol Educated regarding smoking cessation NicoDerm patch in place Increase his activity as tolerated Not quite ready for discharge We will continue to follow I have personally seen and examined the patient, performed the documentation and the assessment and plan as written. Number of minutes spent on the visit: 10 Dictation was produced using [employer] dictation software. Please excuse any grammatical, word or spelling errors.
[2025-02-24 15:03] VITALS: BMI 40.9
[2025-02-24] MEDS: HYDROcodone/APAP 5-325MG 1 EACH TAB PO PRN (16:00)
[2025-02-24 16:47] LABS: Glucose,Whole Blood 179 mg/dL (70-110)
[2025-02-24 20:36] LABS: Glucose,Whole Blood 187 mg/dL (70-110)
[2025-02-24 20:58] VITALS: TEMP 97.4
[2025-02-25] MEDS: CEFEPIME 2 GM in SODIUM CHLORIDE 0.9% 100 ML IVPB SCH (04:06)
[2025-02-25 04:16] LABS: African American GFR (CKD) >90 (>60 ml/min/1.73 sqM); Non-African American GFR(CKD) >90 (>60 ml/min/1.73 sqM)
[2025-02-25 06:31] LABS: Glucose,Whole Blood 182 mg/dL (70-110)
--- NOTE | 2025-02-25 06:48 | P.PN ---
Subjective Progress Note Date: 02/24/25 This is a pleasant 59-year-old male who was recently admitted from [facility] with concerns of community-acquired pneumonia as well as COPD exacerbation. Patient was continued on IV steroids along with DuoNeb treatments and antibiotics with pulmonary following closely. Patient continues to be bronch ospastic with significant wheezing and not quite ready for discharge. Patient is having some rib and upper chest pain due to the cough. Patient does have as needed cough suppressants. Patient encouraged to increase activity as tolerated and has weaned oxygen currently on room air maintaining oxygen saturations above 90%. Plan will be to return to [facility] to complete inpatient rehab for al cohol abuse. Review of systems: Constitutional: No reports of fatigue, fever, or chills Cardiovascular: No reports of chest pain or palpitations Respiratory: reports of shortness of breath with exertion and persistent painful cough GI: reports of nausea, no reports of of vomiting, : No reports of dysuria or retention Neurovascular: No reports of generalized weakness All medications have been reviewed PHYSICAL EXAMINATION: GENERAL: The patient is alert and oriented x4, Well developed, well nourished. Appears older than stated age, morbidly obese HEENT: Pupils are round and equally reacting to light. EOMI. no scleral icterus. No conjunctival pallor. Normocephalic, atraumatic. No pharyngeal erythema. No thyromegaly. CARDIOVASCULAR: S1 and S2 muffled PULMONARY: diminished breath sounds bilaterally with expiratory wheezing and coarse scattered rhonchi noted. ABDOMEN: soft. Nontender on exam. Morbidly obese. non-distended, normoactive bowel sounds. No palpable organomegaly. MUSCULOSKELETAL: No joint swelling or deformity. EXTREMITIES: No cyanosis, clubbing, or pedal edema. NEUROLOGICAL: Gross neurological examination did not reveal any focal deficits. SKIN: No rashes. Assessment: COPD acute exacerbation with bilateral pneumonia, possibly gram-negative Acute hypoxic respiratory failure secondary to above, improving and on room air History of EtOH, currently at [facility] for alcohol rehab History of cocaine use Morbid obesity with a BMI of 41.0 GI prophylaxis DVT prophylaxis Full code Plan: Recommend to continue with current medications and management with pulmonary following. Patient is continued on IV steroids and DuoNeb treatments and will continue at this time. Patient continues on antibiotics with concerns of pneumonia and will continue fo r now Encouraged increase activity as tolerated Continue supportive care for chest wall rib pain due to the cough and will continue with as needed medications Encouraged incentive spirometer use at least 10 times every hour while awake Plan tentatively will be to return to [facility] for continued inpatient alcohol rehab. Possible discharge planning in the next 24 to 48 hours The impression and plan of care has been dictated by Olimpia Olson, nurse practitioner as directed. Dr. Shayan MD I have performed a history and examination and MDM of this patient, discussed the same with the dictator, and agree with the dictator's assessment and plan as written ,documented as a scribe. Based on total visit time, I have performed more than 50% of the visit. Any additional findings or plans will be noted. Objective - Vital Signs Vital signs: Vital Signs Temp 97.8 F 02/24/25 14:00 Pulse 92 02/24/25 16:45 Resp 16 02/24/25 14:00 BP 172/78 02/24/25 14:00 Pulse Ox 94 L 02/24/25 14:00 FiO2 Intake & Output 02/23/25 02/24/25 02/24/25 18:59 06:59 18:59 Intake Total 550 Output Total 400 Balance 550 -400 Weight 118.614 kg Intake: Oral 550 Output: Urine 400 Other: Voiding Method Urinal Toilet Urinal # Voids 1 1 5 - Labs CBC & Chem 7: 02/23/25 05:43 02/25/25 02:55 Labs: Abnormal Lab Results - Last 24 Hours (Table) 02/23/25 02/24/25 02/24/25 Range/Units 20:58 06:24 11:16 POC Glucose (mg/dL) 153 H 146 H 217 H (70-110) mg/dL 02/24/25 Range/Units 16:44 POC Glucose (mg/dL) 179 H (70-110) mg/dL Microbiology - Last 24 Hours (Table) 02/19/25 01:00 Blood Culture - Final Blood
[2025-02-25 07:52] VITALS: BP 166/95; RESP 20
[2025-02-25] MEDS: FUROSEMIDE 10 MG/ML 2 ML VIAL IV ONE (10:17)
--- NOTE | 2025-02-25 10:39 | P.DS ---
Providers Date of admission: 02/19/25 02:16 Expected date of discharge: 02/25/25 Attending physician: Juan Jose Benitez Consults: 02/19/25 02:15 Consult Physician Routine Consulting Provider: Aleksandar Carbajal Consult Reason/Comments: pneumonia, copd, sepsis, hypoxic resp failure Do you want consulting provider notified?: Yes Primary care physician: [facility] Course: This is a pleasant 59-year-old male who was recently admitted from [facility] with concerns of community-acquired pneumonia as well as COPD exacerbation. Patient was continued on IV steroids along with DuoNeb treatments and antibiotics with pulmonary following closely. Patient continues to be bronchospastic with significant wheezing and not quite ready for discharge. Patient is having some rib and upper chest pain due to the cough. Patient does have as needed cough suppressants. Patient encouraged to increase activity as tolerated and has weaned oxygen currently on room air maintaining oxygen saturations above 90%. Plan will be to return to [facility] to complete inpatient rehab for alcohol abuse. February 25: Breathing much improved. Patient did walk the entire floor.. Instructed about incentive spirometry. Counseled about smoking at length. Patient follow-up with his PCP. Sputum cultures have been negative. Will discharge once Ceftin for 3 more days. Inhalers discussed. Patient been discharged from [facility]. Will be going home chest x-ray reviewed by me showed infiltrate at the bases Discussion and discharge planning more than 35 minutes PHYSICAL EXAMINATION: On examination: VITAL SIGNS: [97.4, 80, 16, 166 x 95, 93% room air] GENERAL APPEARANCE: BMI 41.0. Sitting up in chair. Comfortable HEENT: Normal external appearance of nose and ear. Oral cavity normal EYES: Pupils equal. Conjunctiva normal. NECK: JVD not raised. Mass not palpable. RESPIRATORY: Respiratory effort normal. Lungs diminished breath sounds. CARDIOVASCULAR: First and second sounds normal. Some edema. ABDOMEN: Soft. Liver and spleen not palpable. No tenderness. No mass palpable. PSYCHIATRY: Alert and oriented x3. Mood and affect normal. INVESTIGATIONS, reviewed in the clinical context: February 23: White count 9.8 hemoglobin 11.5 platelets 410 sodium 140 potassium 3.8 creatinine 0.51 Assessment: COPD acute exacerbation with bilateral pneumonia, possibly gram-negative Acute hypoxic respiratory failure secondary to above,-improved History of EtOH, came from [facility] for alcohol rehab. Now going home Chronic nicotine dependence, cigarette smoker. Counseled History of cocaine use Morbid obesity with a BMI of 41.0 Full code Disposition: Home Plan - Discharge Summary Discharge Rx Participant: Yes New Discharge Prescriptions: New Nicotine 14Mg/24Hr Patch [Habitrol] 1 patch TRANSDERM DAILY #30 patch predniSONE 10 mg PO DAILY #30 tab cefuroxime axetiL [Ceftin] 500 mg PO BID #6 tab Continue Ibuprofen [Motrin Ib] 600 mg PO Q6H PRN PRN Reason: Pain Or Fever > 100.5 guaiFENesin SYRUP 100MG/5ML [Robitussin] 200 mg PO Q4H PRN PRN Reason: COUGH/CONGESTION Albuterol Sulfate [Ventolin HFA] 1 puff INHALATION RT-Q4H PRN PRN Reason: Shortness Of Breath Semaglutide [Ozempic] 0.25 mg SQ TH PARoxetine HCL 40 mg PO DAILY Labetalol HCl 300 mg PO Q12H Atorvastatin [Lipitor] 20 mg PO HS amLODIPine [Norvasc] 5 mg PO DAILY traZODone HCL [Desyrel] 100 mg PO HS PRN PRN Reason: SLEEP Budesonide/Formoterol Fumarate [Symbicort 160-4.5 Mcg Inhaler] 1 puff INHALATION RT-BID metFORMIN HCL [Glucophage] 500 mg PO BID-W/MEALS Changed Ipratropium [place] [Atrovent Hfa] 2 puff INHALATION BID #1 each Discharge Medication List Albuterol Sulfate [Ventolin HFA] 1 puff INHALATION RT-Q4H PRN 02/19/25 [History] Atorvastatin [Lipitor] 20 mg PO HS 02/19/25 [History] Budesonide/Formoterol Fumarate [Symbicort 160-4.5 Mcg Inhaler] 1 puff INHALATION RT-BID 02/19/25 [History] Ibuprofen [Motrin Ib] 600 mg PO Q6H PRN 02/19/25 [History] Labetalol HCl 300 mg PO Q12H 02/19/25 [History] PARoxetine HCL 40 mg PO DAILY 02/19/25 [History] Semaglutide [Ozempic] 0.25 mg SQ TH 02/19/25 [History] amLODIPine [Norvasc] 5 mg PO DAILY 02/19/25 [History] guaiFENesin SYRUP 100MG/5ML [Robitussin] 200 mg PO Q4H PRN 02/19/25 [History] metFORMIN HCL [Glucophage] 500 mg PO BID-W/MEALS 02/19/25 [History] traZODone HCL [Desyrel] 100 mg PO HS PRN 02/19/25 [History] Ipratropium [place] [Atrovent Hfa] 2 puff INHALATION BID #1 each 02/25/25 [Rx] Nicotine 14Mg/24Hr Patch [Habitrol] 1 patch TRANSDERM DAILY #30 patch 02/25/25 [Rx] cefuroxime axetiL [Ceftin] 500 mg PO BID #6 tab 02/25/25 [Rx] predniSONE 10 mg PO DAILY #30 tab 02/25/25 [Rx] Follow up Appointment(s)/Referral(s): Brayden Roy MD [Primary Care Provider] - 1-2 days Activity/Diet/Wound Care/Special Instructions: Call [facility] at discharge to see if patient can still return - [phone] Discharge/Stand Alone Forms: Outpatient Counseling
[2025-02-25 11:04] LABS: Glucose,Whole Blood 192 mg/dL (70-110)
[2025-02-25 12:10] VITALS: PULSE 88
--- NOTE | 2025-02-25 12:23 | XR ---
EXAMINATION TYPE: XR chest 2V DATE OF EXAM: 02/25/2025 12:19 PM COMPARISON: 02/22/2025 CLINICAL INDICATION: Male, 59 years old with history of SOB: Shortness of breath TECHNIQUE: XR chest 2V views of the chest are obtained. FINDINGS: Scattered senescent parenchymal changes noted. Hyperinflation compatible with COPD. No evidence for infiltrate. No evidence for atelectasis. Heart size is stable. Mediastinal structures are stable and grossly unremarkable. No evidence for hilar prominence. Degenerative changes dorsal spine. IMPRESSION: 1. No evidence for acute pulmonary disease. [facility], , 02/25/2025 12:21 PM
--- NOTE | 2025-02-25 15:06 | P.PN ---
Subjective Progress Note Date: 02/25/25 Patient is a 59-year-old male with past medical history significant for alcohol abuse sent in from [facility] with increased work of breathing x 3 days and congested cough along with fevers. He is from the [facility]. He does have history of COPD and previously previous intubation due to influenza infection. He was hypoxic on arrival and placed on supplemental oxygen. He was tachycardic and febrile and met sepsis criteria. He was bolused with 2 L of lactated Ringer's. Chest x-ray showing bilateral hazy interstitial and patchy airspace disease concerning for pneumonia. Rounded density in the lower anterior hemithorax may be related to hiatal hernia. CBC remarkable for leukocytosis with a white count of 13, hemoglobin 12, platelets 383. Electrolytes WDL, creatinine 0.66, glucose 116. Lactic 0.9. Viral 4 Plex negative for influenza A/B, RSV, COVID. Patient previously started on antibiotics in the form of cefepime and vancomycin. Also, started on DuoNebs and loaded with IV Solu- Medrol. Patient currently being evaluated on the general medical floor. He is resting comfortably on 5 L/min nasal cannula. Does not appear to be distressed. Patient states he was clean from alcohol for proximately 9 months and then approximately 2 weeks ago started binge drinking 1/5/day. Was at [facility] to detox. His last drink was on of last week. Denies any current drug abuse, previously cocaine userr but quit 1 year ago. Denies any chest pain, heart palpitations, lightheadedness or syncopal events, or lower extremity edema. While at the rehab facility he developed increased work of breathing, congested cough, and chills. He was febrile on arrival at our facility. He does have COPD. Smokes approximately 1/2 pack/day. He is on a combination of inhalers including Symbicort, Atrovent, and as needed albuterol. Normal saline infusing at 130 mL/h. Vital signs are stable. On 02/20/2025, patient is being seen for a follow-up. Remains on broad-spectrum antibiotics regarding bilateral lower lobe pneumonia and the patient remains on a combination of cefepime and vancomycin. Remains on oxygen and the patient is currently on 4 L of O2 nasal cannula. Afebrile. Hemodynamically stable. No signs of any delirium tremens. The blood culture is negative. Sputum culture is still negative. The white cell count is 14 with a hemoglobin 11.6 and a platelet count of 408. Electrolytes are all within normal limits. LFTs are also within normal limits. The viral screen was negative. Lactic acid level was down to 0.9. No other new complaints. No altered mentation. On 02/21/2025, the patient remains hypoxic on 4 L of oxygen by nasal cannula with a pulse ox of 96%. Remains bronchospastic and wheezy. The nasal swab was positive for MRSA and suspect MRSA bilateral pneumonia and the patient is currently on vancomycin and the patient was on cefepime. Remains on Symbicort, DuoNeb updrafts and IV Solu-Medrol 40 mg every 8 hours. Rest of the medications are essentially unchanged. No new complaints otherwise for now. No new labs fr om today. The sodium is at 141, potassium is at 4, BUN is 18 with a creatinine of 0.6. The white cell count is 14.5 with a hemoglobin 11.5 with a platelet count of 420. The patient is seen today February 22, 2025 in follow-up on the regular medical floor. He is currently sitting up in a chair at the bedside. Awake and alert in no acute distress. Maintaining O2 saturations in the mid 90s on 2 L/min per nasal cannula. Has been afebrile. Hemodynamically stable. Nasal swab was positive for MRSA. Sputum culture revealed no growth. Blood culture revealed no growth. Glucose 132. He is continued on DuoNeb inhalations, Symbicort, Solu-Medrol. NicoDerm patch in place. Continued on vancomycin and cefepime. Lovenox for DVT prophylaxis. Tessalon Perles for his cough. Today's chest x- ray shows no acute pulmonary process. The patient is seen today February 23, 2025 in follow-up on the regular medical floor. He is currently sitting up in bed. Awake and alert in no acute distress. Maintaining O2 saturations in the 90s on 2 L/min per nasal cannula. He denies any worsening shortness of breath, cough or congestion. He is still somewhat bronchospastic and wheezing. He remains on vancomycin and cefepime. Nasal swab was positive for MRSA. Sputum culture revealed no growth. Blood culture revealed no growth. White count 9.8. Hemoglobin 11.5. Platelets 410. Sodium 140. Bicarb 33. BUN 17. Creatinine 0.51. Glucose 147. He remains on DuoNeb inhalations, Symbicort, Solu-Medrol. NicoDerm patch in place. Lovenox for DVT prophylaxis. The patient is seen today February 24, 2025 in follow-up on the regular medical floor. He is currently up in a chair. Awake and alert in no acute distress. Continues with some cough and congestion. Some wheezing. Not quite back to baseline. He is maintaining O2 saturations in the mid 90s on room air oxygen. He has been afebrile. Hemodynamically stable. Glucose 217. He remains on DuoNeb inhalations, Symbicort, Solu-Medrol. NicoDerm patch in place. Remains on vancomycin and cefepime. Lovenox for DVT prophylaxis. The patient is seen today February 25, 2025 in follow-up on the regular medical floor. He is currently sitting up in a chair at the bedside. Awake and alert in no acute distress. Denies any worsening shortness of breath, cough or congestion. Feeling back to his baseline. Maintaining good O2 saturations in the 90s on room air. Has been afebrile. Hemodynamically stable. Chest x-ray shows no acute pulmonary process. Blood culture revealed no growth. Sputum culture revealed no growth. Nasal swab was positive for MRSA. Creatinine 0.52. GFR greater than 90. Glucose 192. He was continued on DuoNeb inhalations, Symbicort, Solu-Medrol. NicoDerm patch in place. Continued on vancomycin and cefepime. Lovenox for DVT prophylaxis. Objective - Vital Signs Vital signs: Vital Signs Temp 97.4 F L 02/25/25 07:21 Pulse 88 02/25/25 12:09 Resp 20 02/25/25 07:21 BP 166/95 02/25/25 07:21 Pulse Ox 93 L 02/25/25 07:58 FiO2 Intake & Output 02/24/25 02/25/25 02/25/25 18:59 06:59 18:59 Weight 118.614 kg Other: # Voids 5 2 - Exam GENERAL EXAM: Alert, pleasant 59-year-old male, morbidly obese, up in a chair, on room air oxygen, in no apparent distress. HEAD: Normocephalic and atraumatic EYES: Normal reaction of pupils, equal size. NOSE: Clear with pink turbinates. THROAT: No erythema or exudates. Crowded oropharyngeal airway, Mallampati score 4 NECK: No masses, no JVD. CHEST: No chest wall deformity. LUNGS: Equal air entry with bilateral scattered rhonchi, wheeze. No conversational dyspnea or accessory muscle use. CVS: S1 and S2 normal with no audible murmur, regular rhythm. No extra heart sounds ABDOMEN: No hepatosplenomegaly, active bowel sounds, no guarding or rigidity. SPINE: No scoliosis or deformity SKIN: No rashes CENTRAL NERVOUS SYSTEM: No focal deficits, tone is normal in all 4 extremities. EXTREMITIES: There is no peripheral edema, clubbing, or cyanosis. Peripheral pulses are intact. - Labs CBC & Chem 7: 02/23/25 05:43 02/25/25 02:55 Labs: Abnormal Lab Results - Last 24 Hours (Table) 02/24/25 02/24/25 02/25/25 Range/Units 16:44 20:31 02:55 Creatinine 0.52 L (0.66-1.25) mg/dL POC Glucose (mg/dL) 179 H 187 H (70-110) mg/dL 02/25/25 02/25/25 Range/Units 06:30 11:02 Creatinine (0.66-1.25) mg/dL POC Glucose (mg/dL) 182 H 192 H (70-110) mg/dL Microbiology - Last 24 Hours (Table) 02/19/25 01:00 Blood Culture - Final Blood Assessment and Plan Assessment: Bilateral community-acquired pneumonia. Suspected MRSA pneumonia. The patient has previous history of MRSA infection the patient is a chronic nasal MRSA colonizer. Currently on cefepime and vancomycin. Acute COPD exacerbation, secondary to above Acute hypoxemic respiratory failure, improved and on room air oxygen, chest x- ray remarkable for bilateral hazy interstitial and patchy airspace disease concerning for pneumonia. Rounded density in the lower anterior hemithorax may be related to hiatal hernia. Follow-up chest x-ray revealing no acute pulmonary process. Alcohol abuse, last drink approximately 1 week ago, potential referral 1/5/day History of alcohol withdrawal seizures History of cocaine use Current ongoing tobacco dependence, 1/2 pack/day smoker History of previous mechanical ventilator dependent respiratory failure secondary to influenza infection, hospitalized at [facility] Morbid obesity, with a BMI of 41 kg/m Plan: The patient was seen and evaluated Chest x-ray, labs and medications reviewed No acute pulmonary process Currently on room air oxygen Cleared for discharge Continue Symbicort Continue Ventolin HFA Complete a prednisone taper Again educated regarding smoking cessation NicoDerm patch in place Follow-up in our office in 1 week I have personally seen and examined the patient, performed the documentation and the assessment and plan as written. Number of minutes spent on the visit: 10 Dictation was produced using [employer] dictation software. Please excuse any grammatical, word or spelling errors.
--- NOTE | 2025-03-03 06:49 | CDI ---
Documentation Clarification Form Date: 03/03/2025 06:31:37 AM From: Cassidy Hurtado RN: [id number] Admit Date: 02/19/2025 02:16:00 AM Patient Name: Nilo Strong Visit Number: [id number] Discharge Date: 02/25/2025 02:49:00 PM ATTENTION: The Clinical Documentation Specialists (CDI) and [facility] Coding Staff appreciate your assistance in clarifying documentation. Please respond to the clarification below the line at the bottom and electronically sign. The CDI & [facility] Coding staff will review the response and follow-up if needed. Please note: Queries are made part of the Legal Health Record. If you have any questions, please contact the author of this message via ITS. Doctor/Provider: JuanJ ose Benitez Sepsis with fever and leukocytosis is documented in H and P, ED notes 02/20 and 02/21 PN's and not carried through to [facility]. Based on this information and the findings below, is there an additional diagnosis that is clinically appropriate for this patient? History/Risk Factors: Pneumonia and respiratory failure, COPD exacerbation Clinical Indicators: WBC 13.03 and 14.05 Lactic acid: 0.9 Blood cultures: No growth Vitals signs: 100.3 F, 114 BPM, 22-26, 173/94, 94% - 92% NC 4 Treatment: IV antibiotics ID Consult: Pulmonary consult Antibiotics: Vancomycin Cefepime IV Bolus: 2L fluid bolus of lactated Ringer's Is there an additional diagnosis that is clinically appropriate for this patient? [x ] Sepsis, present on admission [ ] Sepsis, developed during stay, not present on admission [ ] Severe Sepsis with organ failure [ ] Septic ruled out [ ] SIRS, without underlying infectious process [ ] No additional diagnosis/not clinically significant [ ] Other, please specify [ ] Unable to determine SIRS Criteria: 2 or more of the following may indicate SIRS Temperature < 96.8F (36C) or > 101.0F (38.3C) Heart Rate > 90 bpm Respiratory Rate > 20 breaths/min or PaCO2 < 32 mmHg White Blood Cell Count > 12,000 or < 4,000 cells/mm3 or > 10% bands MTDD
== END 2025-02-25 14:49 | disposition home or self-care (01) | DRG 720 ==
LOC: EC 19:27 → 4SSUR 02-19 02:16
PROVIDERS: ADMIT Hospitalist; ATTEND Hospitalist
DX: A41.50 Gram-negative sepsis, unspecified (principal); J15.69 Pneumonia due to other Gram-negative bacteria; E66.01 Morbid (severe) obesity due to excess calories; F17.210 Nicotine dependence, cigarettes, uncomplicated; F32.A Depression, unspecified; J44.0 Chronic obstructive pulmonary disease with (acute) lower respiratory infection; J44.1 Chronic obstructive pulmonary disease with (acute) exacerbation; F10.21 Alcohol dependence, in remission; J96.01 Acute respiratory failure with hypoxia; K21.9 Gastro-esophageal reflux disease without esophagitis; R56.9 Unspecified convulsions; Z68.41 Body mass index [BMI] 40.0-44.9, adult; Z79.51 Long term (current) use of inhaled steroids; Z79.84 Long term (current) use of oral hypoglycemic drugs; Z79.899 Other long term (current) drug therapy; Z86.14 Personal history of Methicillin resistant Staphylococcus aureus infection; Z71.3 Dietary counseling and surveillance; Z11.52 Encounter for screening for COVID-19; Z79.85 Long-term (current) use of injectable non-insulin antidiabetic drugs
CPT/HCPCS: 36415; 71046; 80048; 80053; 80202; 82565; 83605; 85025; 87040; 87070; 87205; 87636; 93005; 94640; 94760; 96365; 96366; 96367; 96375; 99291